=== PATIENT | female | born 1975 | race Caucasian/White ===

== ENCOUNTER 2016-08-08 08:46 | Inpatient (IN) | payer MEDICAID ==
[~2016-08-08] VITALS: Ht 160 cm; Wt 77.0 kg
[2016-08-08] VITALS (19 sets, daily range): BP systolic 141–181; BP diastolic 83–121; PULSE 59–82; RESP 16–18; TEMP 97.5–98.9; O2SAT 95–100
[~2016-08-08 08:46] MED LIST: ASPI81TA82 PO; IBUP-232 PO; METO50TA PO
[2016-08-08] MEDS ORDERED: SODIUM CHLORIDE 0.9% FLUSH 10 ML FLUSH IVF PRN (09:00)
[2016-08-08] MEDS ORDERED: ASPIRIN 325 MG TAB PO ONE (09:00)
[2016-08-08] MEDS ORDERED: LORazepam 2 MG/ML VIAL IM ONE (09:00)
--- NOTE | 2016-08-08 09:05 | PD ---
HPI Chief Complaint: Chest Pain Time Seen by Provider: 08:58 Travel History International Travel<30 days: No Contact w/Intl Traveler<30days: No History of Present Illness HPI Patient presents with complaints of chest pain for approximately one hour prior to arrival. Constant in nature. Admits to history of anxiety with similar symptoms. Reports a history of [place] approximately 3 years ago that feels similar to this as well. Positive tobacco history. Positive family history. Denies diabetes. History of hypertension, noncompliant with medication. Denies any diaphoresis or shortness of breath. Denies any radiation to her left arm. Denies . Reports mild nausea which she also gets with anxiety. States she did take 2 baby aspirin this morning. PFSH Past Medical History Hx Anticoagulant Therapy: No Arthritis: Yes Asthma: Yes Blood Disorders: No Bipolar Disorder: Yes Anxiety: Yes Depression: No Heart Rhythm Problems: No Cancer: No Cardiovascular Problems: Yes Chemotherapy: No Chest Pain: Yes Congestive Heart Failure: No COPD: No Cerebrovascular Accident: No Diabetes: No Diminished Hearing: No Endocrine: No Genitourinary: No Hypertension: Yes Immune Disorder: No Musculoskeletal: No Neurologic: No Psychiatric: Yes Reproductive: Yes Respiratory: No Immunizations Current: Yes Myocardial Infarction: Yes Radiation Therapy: No Sleep Apnea: Yes Thyroid Disease: No : 4 Para: 2 Miscarriage: 2 Dilation and Curettage (D&C): Yes (1997) Tubal Ligation: Yes Past Surgical History Cardiac Surgery: Yes (CATH) Section: Yes Gynecologic Surgery: Yes (D&C) Hysterectomy: No Other Surgery: Yes (d&c, ) Social History Alcohol Use: No Tobacco Use: Yes (/2 PPD) Substance Use: Yes (marijuana) Allergies-Medications (Allergen,Severity, Reaction): Coded Allergies: Triaminic (Verified Allergy, Unknown, HIVES, 08/08/16) Reported Meds & Prescriptions Reported Meds & Active Scripts Active Reported Aspirin 81 Mg Chew 81 Mg CHEW DAILY Review of Systems General / Constitutional: No: Fever Eyes: No: Visual changes HENT: No: Headaches Cardiovascular: Positive: Chest Pain or Discomfort Respiratory: No: Shortness of Breath Gastrointestinal: No: Abdominal Pain Genitourinary: No: Dysuria Musculoskeletal: No: Pain Skin: No Rash Neurologic: No: Weakness Psychiatric: No: Depression Endocrine: No: Polydipsia Hematologic/Lymphatic: No: Easy Bruising Physical Exam Narrative GENERAL: Well-nourished, well-developed patient. SKIN: Focused skin assessment warm/dry. HEAD: Normocephalic. EYES: No scleral icterus. No injection or drainage. NECK: Supple, trachea midline. No JVD or lymphadenopathy. CARDIOVASCULAR: Regular rate and rhythm without murmurs, gallops, or rubs. RESPIRATORY: Breath sounds equal bilaterally. No accessory muscle use. GASTROINTESTINAL: Abdomen soft, non-tender, nondistended. MUSCULOSKELETAL: No cyanosis, or edema. BACK: Nontender without obvious deformity. No CVA tenderness. Data Data Last Documented VS Vital Signs Date Time Temp Pulse Resp B/P Pulse Ox O2 Delivery O2 Flow Rate FiO2 08/08/16 08:50 16 95 Room Air 08/08/16 08:50 158/108 181/109 08/08/16 08:46 97.5 74 Orders Electrocardiogram (08/08/16 08:58) Ckmb (Isoenzyme) Profile (08/08/16 08:58) Complete Blood Count With Diff (08/08/16 08:58) Comprehensive Metabolic Panel (08/08/16 08:58) Magnesium (Mg) (08/08/16 08:58) Prothrombin Time / Inr (Pt) (08/08/16 08:58) Act Partial Throm Time (Ptt) (08/08/16 08:58) Troponin I (08/08/16 08:58) Chest, Single Ap (08/08/16 08:58) Ecg Monitoring (08/08/16 08:58) Bilateral Bp Monitoring (08/08/16 08:58) Iv Access Insert/Monitor (08/08/16 08:58) Oximetry (08/08/16 08:58) Oxygen Administration (08/08/16 08:58) Aspirin (Aspirin) (08/08/16 09:00) Sodium Chloride 0.9% Flush (Ns Flush) (08/08/16 09:00) Lorazepam Inj (Ativan Inj) (08/08/16 09:00) Lorazepam Inj (Ativan Inj) (08/08/16 09:15) Ondansetron Inj (Zofran Inj) (08/08/16 09:30) Clonidine (Catapres) (08/08/16 10:15) Heparin Infusion MARY.Q1H (08/08/16 10:48) Heparin Inj (Heparin Inj) (08/08/16 17:00) Heparin Inj (Heparin Inj) (08/08/16 17:00) Heparin-D5w Inj (Heparin-D5w Inj) (08/08/16 11:00) Act Partial Throm Time (Ptt) (08/08/16 10:48) Cbc No Diff, Includes Plts (08/08/16 10:48) Cbc No Diff, Includes Plts (08/11/16 06:00) Act Partial Throm Time (Ptt) (08/08/16 17:48) Occult Blood (Hemoccult) Stool (08/08/16 10:48) Drug Screen, Random Urine (08/08/16 10:48) Nitroglycerin 2% Oint (Nitroglycerin 2% (08/08/16 11:00) Atenolol (Tenormin) (08/08/16 21:00) Admit Order (Ed Use Only) (08/08/16 ) Health Administrator / Telemetry MARY.Q8H (08/08/16 10:53) Vital Signs (Adult) Q4H (08/08/16 10:53) Diet Heart Healthy (08/08/16 Lunch) Activity Oob With Assistance (08/08/16 10:53) Creatine Kinase (Cpk) (08/08/16 10:53) Creatine Kinase (Cpk) (08/08/16 16:53) Troponin I (08/08/16 10:53) Troponin I (08/08/16 16:53) ^ Saline Lock (08/08/16 10:53) Resp Oxygen Inderjit C Titrat 1-4 L (08/08/16 ) Notify Dr: Other (08/08/16 10:53) Ondansetron Inj (Zofran Inj) (08/08/16 11:00) Acetaminophen (Tylenol) (08/08/16 11:00) Sodium Chloride 0.9% Flush (Ns Flush) (08/08/16 21:00) Labs Laboratory Tests Test 08/08/16 09:08 White Blood Count 7.9 TH/MM3 Red Blood Count 5.25 MIL/MM3 Hemoglobin 15.9 GM/DL Hematocrit 47.8 % Mean Corpuscular Volume 91.2 FL Mean Corpuscular Hemoglobin 30.2 PG Mean Corpuscular Hemoglobin 33.1 % Concent Red Cell Distribution Width 12.8 % Platelet Count 206 TH/MM3 Mean Platelet Volume 8.9 FL Neutrophils (%) (Auto) 72.6 % Lymphocytes (%) (Auto) 18.0 % Monocytes (%) (Auto) 6.6 % Eosinophils (%) (Auto) 1.1 % Basophils (%) (Auto) 1.7 % Neutrophils # (Auto) 5.8 TH/MM3 Lymphocytes # (Auto) 1.4 TH/MM3 Monocytes # (Auto) 0.5 TH/MM3 Eosinophils # (Auto) 0.1 TH/MM3 Basophils # (Auto) 0.1 TH/MM3 CBC Comment AUTO DIFF Differential Comment AUTO DIFF CONFIRMED Prothrombin Time 10.3 SEC Prothromb Time International 0.9 RATIO Ratio Activated Partial 29.3 SEC Thromboplast Time Sodium Level 141 MEQ/L Potassium Level 4.0 MEQ/L Chloride Level 108 MEQ/L Carbon Dioxide Level 25.9 MEQ/L Anion Gap 7 MEQ/L Blood Urea Nitrogen 9 MG/DL Creatinine 0.85 MG/DL Estimat Glomerular Filtration 74 ML/MIN Rate Random Glucose 111 MG/DL Calcium Level 8.8 MG/DL Magnesium Level 2.3 MG/DL Total Bilirubin 0.4 MG/DL Aspartate Amino Transf 15 U/L (AST/SGOT) Alanine Aminotransferase 15 U/L (ALT/SGPT) Alkaline Phosphatase 66 U/L Total Creatine Kinase 80 U/L Troponin I 1.39 NG/ML Total Protein 7.3 GM/DL Albumin 3.6 GM/DL MDM Medical Decision Making Medical Screen Exam Complete: Yes Emergency Medical Condition: Yes Differential Diagnosis ACS, anxiety, gastroenteritis, urgent hypertension Narrative Course Assessment and plan discussed with patient at bedside. EKG reveals sinus rhythm rate of 75. ST segment elevations or depressions. Hemoglobin is mildly elevated likely secondary to some tobacco history. Troponin is mildly elevated at 1.39. Last 72 hours Impressions Chest X-Ray 08/08/16 0858 Signed Impressions: Service Date/Time: Wednesday, August 08, 2016 09:09 - CONCLUSION: No acute disease. Will Vogel MD FACR Patient is resting comfortably chest pain-free Physician Communication Physician Communication Spoke to Dr. Bhatti who is in agreement will admit, requested UDS, heparin drip, Nitropaste and beta brandi Diagnosis Primary Impression: NSTEMI (non-ST elevated myocardial infarction) Esteban Romo MD Aug 08, 2016 09:05
[2016-08-08] MEDS ORDERED: LORazepam 2 MG/ML VIAL IV PUSH ONE (09:15)
[2016-08-08 09:22] LABS: AUTOMATED NEUTROPHIL # 5.8 TH/MM3 (1.8-7.7); BASOPHIL # 0.1 TH/MM3 (0-0.2); BASOPHIL % 1.7 % (0.0-2.0); EOSINOPHIL # 0.1 TH/MM3 (0-0.4); EOSINOPHIL % 1.1 % (0.0-4.0); HEMATOCRIT 47.8 % (35.0-46.0); LYMPHOCYTE # 1.4 TH/MM3 (1.0-4.8); MEAN CELL VOLUME 91.2 FL (80.0-100.0); MEAN CORPUSCULAR HEMOGLOBIN 30.2 PG (27.0-34.0); MEAN CORPUSCULAR HGB CONC 33.1 % (32.0-36.0); MONO % 6.6 % (0.0-8.0); NEUT % 72.6 % (16.0-70.0); PLATELET COUNT 206 TH/MM3 (150-450); RED BLOOD COUNT 5.25 MIL/MM3 (4.00-5.30); RED CELL DISTRIBUTION WIDTH 12.8 % (11.6-17.2); WHITE BLOOD COUNT 7.9 TH/MM3 (4.0-11.0)
--- NOTE | 2016-08-08 09:28 | RADHPO ---
EXAM DATE/TIME: 08/08/2016 09:09 [facility] COMPARISON: CHEST SINGLE AP, August 28, 2015, 19:29. INDICATIONS : Chest pain today MEDICAL HISTORY : Myocardial infarction. SURGICAL HISTORY : None. ENCOUNTER: Initial ACUITY: 1 day PAIN SCORE: 9/10 LOCATION: Bilateral chest FINDINGS: A single view of the chest demonstrates the lungs to be symmetrically aerated without evidence of mas s, infiltrate or effusion. The cardiomediastinal contours are unremarkable. Osseous structures are intact. CONCLUSION: No acute disease. Will Vogel MD FACR on August 08, 2016 at 9:26 Board Certified Radiologist. This report was verified electronically.
[2016-08-08] MEDS ORDERED: ONDANSETRON HCL 4 MG/2 ML VIAL IV PUSH ONE (09:30)
[2016-08-08 09:33] LABS: APTT (PATIENT) 29.3 SEC (24.3-30.1); INTERNATIONAL NORMALIZED RATIO 0.9 RATIO; PROTHROMBIN TIME - PATIENT 10.3 SEC (9.8-11.6)
[2016-08-08 09:34] LABS: HEMO FLAGS AUTO DIFF
[2016-08-08] MEDS ORDERED: ASPI81CH CHEW (09:37)
[2016-08-08 09:55] LABS: SCAN/DIFF AUTO DIFF CONFIRMED
[2016-08-08 10:12] LABS: ALT (GPT) 15 U/L (10-53)
[2016-08-08 10:13] LABS: BICARBONATE 25.9 MEQ/L (21.0-32.0); BLOOD UREA NITROGEN 9 MG/DL (7-18); MAGNESIUM 2.3 MG/DL (1.5-2.5)
[2016-08-08] MEDS ORDERED: cloNIDine HCL 0.1 MG TAB PO ONE (10:15)
[2016-08-08 10:16] LABS: ANION GAP 7 MEQ/L (5-15); CHLORIDE 108 MEQ/L (98-107); SODIUM (NA) 141 MEQ/L (136-145)
[2016-08-08 10:20] LABS: AST (GOT) 15 U/L (15-37); GLOMERULAR FILTRATION RATE 74 ML/MIN (>89)
[2016-08-08 10:22] LABS: TOTAL BILIRUBIN ADULT 0.4 MG/DL (0.2-1.0)
[2016-08-08 10:23] LABS: ALKALINE PHOSPHATASE 66 U/L (45-117)
[2016-08-08 10:26] LABS: CREATINE KINASE 80 U/L (26-192)
[2016-08-08] MEDS ORDERED: NITROGLYCERIN 2% OINT 1 GM PACKET TOPICAL ONE (11:00)
[2016-08-08] MEDS ORDERED: HEPARIN-D5W INJ 250 ML IV SCH (11:00)
[2016-08-08] MEDS ORDERED: ONDANSETRON HCL 4 MG/2 ML VIAL IV PRN (11:00)
[2016-08-08 12:36] LABS: AMPHETAMINE, URINE NEG (NEG)
[2016-08-08 12:45] LABS: BARBITURATES, URINE NEG (NEG)
[2016-08-08 12:49] LABS: COCAINE, URINE NEG (NEG)
[2016-08-08] MEDS: ACETAMINOPHEN 325 MG TAB PO PRN ×2 (15:40→21:48)
[2016-08-08] MEDS ORDERED: ATORVASTATIN 40 MG TAB PO ONE (16:00)
--- NOTE | 2016-08-08 16:47 | HHI.HP ---
HPI Service [facility] ([place], [place])ists Primary Care Physician No Primary Care Physician Admission Diagnosis NSTEMI Diagnoses: Chief Complaint: chest pain Travel History International Travel<30 Days: No Contact w/Intl Traveler <30 Da: No Traveled to Known Affected Are: No History of Present Illness Written by Renate Uribe, acting as scribe for Dr. Rangel on 08/08/16 at 17: 40. 40-year-old female with history of hypertension, asthma, tobacco use, anxiety, depression, bipolar disorder, presents with acute onset of chest pain this morning 08/08/16. The patient reports she woke up around 7:30am with severe palpitations, felt her heart racing, then developed chest pain located substernally with radiation to the mid-back, described as severe pressure, associated with nausea but no shortness of breath or dizziness. She took 2 baby aspirin and came to the ER. Symptoms lasted about an hour, resolved after her arrival to the ER. Denies noticing any aggravating or alleviating factors. Denies any recent travel or leg swelling. The patient has a history of NSTEMI in 2013 however cardiac catheterization done by Dr. Vail showed normal coronary arteries at the time, no obvious culprit for the NSTEMI. She continues to smoke tobacco, however is motivated to quit. Both of her parents have a history of heart disease, mother had stent at age 65 and father with CABG in his 50s. The patient admits to noncompliance with blood pressure medications, however does take a baby aspirin daily. The patient reports history of severe anxiety and has palpitations and chest pains almost every day but nothing like her symptoms today. She reports recently increased anxiety and stress level since she has returned to work. She states she only works 5 days a week, 6 hour shifts, however it has been hard leaving her children at home during summer break. The patient is interested in talking to a psychiatrist about possibly starting medication for her severe anxiety. Review of Systems Except as stated in HPI: all other systems reviewed are Neg Past Family Social History Past Medical History asthma arthritis bipolar disorder anxiety depression hypertension Past Surgical History D&C Cardiac catheterization Reported Medications Aspirin 81 Mg Chew 81 Mg CHEW DAILY Allergies: Coded Allergies: Triaminic (Verified Allergy, Unknown, HIVES, 08/08/16) Active Ordered Medications Current Medications Medications (Trade) Dose Ordered Sig/Vannessa Route Start Time Stop Time Status Last Admin (NS Flush) 2 ml UNSCH PRN IVF 08/08/16 09:00 (Heparin Inj) 5,000 units UNSCH PRN IV 08/08/16 17:00 Heparin Sodium (Porcine) 2500 units 2,500 units UNSCH PRN IV 08/08/16 17:00 (Heparin-D5W Inj) 250 ml @ 0 mls/hr TITRATE IV 08/08/16 11:00 08/08/16 12:34 (Tenormin) 25 mg Q12HR PO 08/08/16 21:00 (Zofran Inj) 4 mg Q6H PRN IV 08/08/16 11:00 08/08/16 15:40 (Tylenol) 650 mg Q4H PRN PO 08/08/16 11:00 08/08/16 15:40 (NS Flush) 2 ml BID IV FLUSH 08/08/16 21:00 (Lipitor) 40 mg DAILY PO 08/09/16 09:00 (Ecotrin Ec) 162 mg DAILY PO 08/09/16 09:00 Family History Mother with heart disease, cardiac stent placed age 65 Father with hypertension, heart disease, CABG in his 50s Social History Smokes tobacco, 1/2 PPD Denies alcohol use Smokes marijuana Denies any other illicit drug use Physical Exam Vital Signs Vital Signs Date Time Temp Pulse Resp B/P Pulse Ox O2 Delivery O2 Flow Rate FiO2 08/08/16 16:30 61 08/08/16 15:45 59 08/08/16 15:42 98.9 78 18 143/97 98 08/08/16 15:00 78 16 141/83 98 08/08/16 12:25 82 16 150/99 100 Room Air 08/08/16 11:40 66 16 154/98 99 Room Air 08/08/16 10:40 82 16 162/112 100 Room Air 08/08/16 10:00 95 21 08/08/16 10:00 78 16 168/106 99 Room Air 08/08/16 09:40 76 16 154/121 99 Room Air 08/08/16 08:50 16 95 Room Air 08/08/16 08:50 95 Room Air 08/08/16 08:50 158/108 181/109 08/08/16 08:50 Room Air 08/08/16 08:46 97.5 74 16 158/108 95 Physical Exam GENERAL: Well-nourished, well-developed middle aged female patient in [facility]. SKIN: Warm and dry. No rash. HEAD: Normocephalic. Atraumatic. EYES: Pupils equal and round. No scleral icterus. No injection or drainage. ENT: No nasal bleeding or discharge. Mucous membranes pink and moist. NECK: Supple. Trachea midline. Thyroid exam unremarkable. CARDIOVASCULAR: Regular rate and rhythm. S1, S2 noted. No murmur appreciated. RESPIRATORY: No accessory muscle use. Clear to auscultation. Breath sounds equal bilaterally. GASTROINTESTINAL: Abdomen soft, non-tender, nondistended. Normoactive bowel sounds x4. MUSCULOSKELETAL: No obvious deformities. Extremities without clubbing, cyanosis , or edema. NEUROLOGICAL: Awake and alert. No obvious cranial nerve deficits. Motor grossly within normal limits. Normal speech. PSYCHIATRIC: Tearful, anxious; insight and judgment normal. Laboratory Laboratory Tests Test 08/08/16 08/08/16 08/08/16 09:08 12:22 14:52 White Blood Count 7.9 Red Blood Count 5.25 Hemoglobin 15.9 Hematocrit 47.8 Mean Corpuscular Volume 91.2 Mean Corpuscular Hemoglobin 30.2 Mean Corpuscular Hemoglobin 33.1 Concent Red Cell Distribution Width 12.8 Platelet Count 206 Mean Platelet Volume 8.9 Neutrophils (%) (Auto) 72.6 Lymphocytes (%) (Auto) 18.0 Monocytes (%) (Auto) 6.6 Eosinophils (%) (Auto) 1.1 Basophils (%) (Auto) 1.7 Neutrophils # (Auto) 5.8 Lymphocytes # (Auto) 1.4 Monocytes # (Auto) 0.5 Eosinophils # (Auto) 0.1 Basophils # (Auto) 0.1 CBC Comment AUTO DIFF Differential Comment AUTO DIFF CONFIRMED Prothrombin Time 10.3 Prothromb Time International 0.9 Ratio Activated Partial 29.3 Thromboplast Time Sodium Level 141 Potassium Level 4.0 Chloride Level 108 Carbon Dioxide Level 25.9 Anion Gap 7 Blood Urea Nitrogen 9 Creatinine 0.85 Estimat Glomerular Filtration 74 Rate Random Glucose 111 Calcium Level 8.8 Magnesium Level 2.3 Total Bilirubin 0.4 Aspartate Amino Transf 15 (AST/SGOT) Alanine Aminotransferase 15 (ALT/SGPT) Alkaline Phosphatase 66 Total Creatine Kinase 80 149 Troponin I 1.39 4.53 Total Protein 7.3 Albumin 3.6 Urine Opiates Screen NEG Urine Barbiturates Screen NEG Urine Amphetamines Screen NEG Urine Benzodiazepines Screen NEG Urine Cocaine Screen NEG Urine Cannabinoids Screen POS Result Diagram: 08/08/1690708/08/16 09 Imaging Last Impressions Chest X-Ray 08/08/16 0858 Signed Impressions: Service Date/Time: Wednesday, August 08, 2016 09:09 - CONCLUSION: No acute disease. Will Vogel MD FACR Assessment and Plan Problem List: (1) NSTEMI (non-ST elevated myocardial infarction) ICD Code: I21.4 Status: Acute (2) Chest pain ICD Code: R07.9 Status: Acute (3) Anxiety ICD Code: F41.9 Status: Acute Assessment and Plan 40-year-old female with history of hypertension, asthma, tobacco use, anxiety, bipolar disorder, presents with acute onset of chest pain today 08/08. NSTEMI: Troponins elevated at 1.39 --> 4.53. EKG reviewed, shows NSR, no acute ST changes to suggest ischemia. Pt has hx of NSTEMI 2013 with cardiac catheterization by Dr. Vail showed normal coronary arteries. -Continue trend serial cardiac enzymes and EKGs -Continue IV heparin drip -Continue aspirin, statin, BB, nitro paste -IV morphine prn chest pain -Monitor on telemetry -Check lipid panel and HgbA1c -Cardiology consulted, ER MD spoke with Dr. Bhatti -NPO after midnight Anxiety: acute on chronic. S/p IV ativan in the ED. Patient still very tearful/ anxious on exam. -continue Xanax 0.5mg po q8h prn anxiety -consult psychiatry, consider starting on SSRI Elevated Hemoglobin: patient has had elevated hemoglobin on multiple visits. Consider polycythemia. -check EPO and JAK2 -consider hematology consult Hypertension: chronic, not on meds -started on metoprolol -monitor BP, adjust antihypertensives as needed Tobacco Use: chronic, patient motivated to quit -counseled on cessation -avoid nicotine patch for now due to vasoconstriction DVT Prophylaxis: on Heparin drip Discussed Condition With Patient, patient's mom and daughter at bedside, CIC RN, ER MD Physician Certification 2 Midnight Certification Type: Admission for Inpatient Services Order for Inpatient Services The services are ordered in accordance with Medicare regulations or non- Medicare payer requirements, as applicable. In the case of services not specified as inpatient-only, they are appropriately provided as inpatient services in accordance with the 2-midnight benchmark. Estimated LOS (days): 2 days is the estimated time the patient will need to remain in the hospital, assuming treatment plan goals are met and no additional complications. Post-Hospital Plan: Home Medical Decision Making MDM Remarks This note was transcribed by eloise Uribe. I, Dr. Jerzy Quesada personally performed the history, physical exam, and medical decision making; and confirmed the accuracy of the information in the transcribed note. Authenticated by Dr. Jerzy Quesada on 08/08/16 at 18:32. Renate Uribe PA-C Aug 08, 2016 16:47 Jerzy Richard MD Aug 08, 2016 18:32
[2016-08-08] MEDS ORDERED: HEPARIN SODIUM - IV 10,000 UNITS/10 ML VIAL IV PRN ×2 (17:00)
[2016-08-08] MEDS ORDERED: MORPHINE SULFATE 4 MG/ML INJ IV PUSH PRN (17:30)
[2016-08-08] MEDS: ALPRAZolam 0.5 MG TAB PO PRN ×2 (17:50→22:55)
--- NOTE | 2016-08-08 18:42 | MB ---
cc: SLICK BHATTI DATE OF CONSULTATION 08/08/16 I have reviewed prior and present records and spoken to the patient. HISTORY Three years ago the patient had prolonged chest pain with a non-ST elevation DC. Catheterization showed normal LV function and coronary arteries. The patient gets occasional atypical chest pressure under stress. She notes no exertional discomfort, congestive heart failure symptoms or syncope. She has noted over the last 3 years that a few times per day she will get the sudden onset of a rapid heartbeat lasting seconds which resolved suddenly. Today at 7:30 this morning she had the onset of a rapid, regular heart beat which was fast. This lasted an hour and was associated with substernal tightness but no other symptoms. The palpitations came on suddenly and ended suddenly. Her discomfort resolved over 20 minutes after the palpitations. She is pain free now. PAST MEDICAL HISTORY Tobacco abuse, asthma, cardiac as above. D&C, tubal ligation, section, UTIs, hypertension. MEDICATIONS Medications prior to examination just aspirin. SOCIAL HISTORY She is and smokes one pack per day and rarely drinks. FAMILY HISTORY Positive for mother with an DC at 65. REVIEW OF SYSTEMS Review of systems remarkable for hip pain and the above. PHYSICAL EXAMINATION GENERAL: On exam she is alert and oriented x3. HEENT: There is no xanthelasma and oral pharyngeal mucosa normal. CHEST: Without deformities and clear. NECK: JVD normal. CARDIOVASCULAR: S1-S2. No murmurs, gallops. ABDOMEN: Benign. EXTREMITIES: Show no cyanosis, clubbing or edema. Pulses 2/2 throughout without bruits. She is not ambulated ALLERGIES TRIAMINIC. CARDIOLOGY STUDIES EKG shows sinus rhythm with no acute changes. IMAGING STUDIES Chest x-ray shows no acute disease. LABORATORY FINDINGS Potassium 4.0, creatinine 0.85, glucose 111. CPK normal with troponins of 1.39 and 4.53. Tox screen only positive for cannabis. PT/PTT normal. CBC essentially normal. PROBLEM 1. Non-ST elevation DC-this was preceded by the onset of a rapid arrhythmia and most likely is a type 2 injury, although, she does have risk factors. 2. Arrhythmia-this sounds like supraventricular tachycardia. 3. Tobacco abuse. 4. Hypertension. RECOMMENDATIONS 1. She is presently on heparin drip. 2. Beta-blockers. 3. Aspirin and statins, obtaining lipid panel. 4. Will likely need catheterization just to rule out significant obstructive disease. If this is negative she may need electrophysiologic studies. All questions have been answered. Slick Bhatti MD ASG/EO /4:03 PM /6:36 PM
[2016-08-08] MEDS ORDERED: ATENOLOL 25 MG TAB PO SCH (21:00)
[2016-08-08 21:27] LABS: APTT (PATIENT) 32.9 SEC (24.3-30.1)
[2016-08-08] MEDS: METOPROLOL TARTRATE 25 MG TAB PO SCH (21:39)
[2016-08-08] MEDS: SODIUM CHLORIDE 0.9% FLUSH 10 ML FLUSH IV FLUSH SCH (21:39)
[2016-08-08 21:42] LABS: CREATINE KINASE 120 U/L (26-192)
[2016-08-09] VITALS (23 sets, daily range): BP systolic 124–171; BP diastolic 78–111; PULSE 53–79; RESP 16–20; TEMP 97.7–98.1; O2SAT 97–99
[2016-08-09 05:01] LABS: APTT (PATIENT) 52.2 SEC (24.3-30.1)
[2016-08-09 05:18] LABS: HDL CHOLESTEROL 47.8 MG/DL (40.0-60.0)
[2016-08-09] MEDS: ATORVASTATIN 40 MG TAB PO SCH (08:42)
[2016-08-09] MEDS: ALPRAZolam 0.5 MG TAB PO PRN ×2 (08:43→18:11)
[2016-08-09] MEDS: METOPROLOL TARTRATE 25 MG TAB PO SCH ×2 (08:43→20:14)
[2016-08-09] MEDS: ASPIRIN EC 81 MG TABEC PO SCH (08:43)
[2016-08-09] MEDS: SODIUM CHLORIDE 0.9% FLUSH 10 ML FLUSH IV FLUSH SCH ×2 (08:43→20:14)
--- NOTE | 2016-08-09 09:30 | PD.CARD.PN ---
Subjective Subjective Remarks Patient denies any chest pain, bleeding or GI symptoms. She is sick of being in the hospital. Telemetry reveals sinus rhythm/sinus bradycardia. On heparin drip. Objective Medications Reviewed Vital Signs / I&O Vital Signs Date Time Temp Pulse Resp B/P Pulse Ox O2 Delivery O2 Flow Rate FiO2 08/09/16 08:06 79 08/09/16 07:00 61 08/09/16 07:00 97.9 64 18 150/98 98 08/09/16 05:00 60 08/09/16 04:41 98.1 58 16 143/93 99 08/09/16 04:00 56 08/09/16 03:00 61 08/09/16 02:00 60 08/09/16 01:00 59 08/09/16 00:11 97.8 69 16 124/78 98 08/09/16 00:00 58 08/08/16 23:00 61 08/08/16 22:00 72 08/08/16 21:00 74 08/08/16 20:25 97.8 63 16 142/86 99 08/08/16 20:00 64 08/08/16 19:00 73 08/08/16 18:00 72 08/08/16 17:00 75 08/08/16 16:30 61 08/08/16 15:45 59 08/08/16 15:42 98.9 78 18 143/97 98 08/08/16 15:00 78 16 141/83 98 08/08/16 12:25 82 16 150/99 100 Room Air 08/08/16 11:40 66 16 154/98 99 Room Air 08/08/16 10:40 82 16 162/112 100 Room Air 08/08/16 10:00 95 21 08/08/16 10:00 78 16 168/106 99 Room Air 08/08/16 09:40 76 16 154/121 99 Room Air I/O 08/08/16 08/08/16 08/08/16 08/09/16 08/09/16 08/09/16 07:00 15:00 23:00 07:00 15:00 23:00 Intake Total 520 ml 350 ml Output Total 350 ml Balance 520 ml 0 ml Intake Oral 480 ml 240 ml IV Total 40 ml 110 ml Output Urine Total 350 ml Stool Total 0 ml # Voids 3 # Bowel Movements 1 Physical Exam GENERAL: Well-nourished, well-developed patient in no apparent distress. SKIN: Warm and dry. NECK: JVD normal - less than or equal to 5 cm H20. CARDIOVASCULAR: Regular rate and rhythm without murmurs, gallops, or rubs. RESPIRATORY: Normal breath sounds - equal bilaterally. No accessory muscle use. No wheezes, rales or rubs. PERIPHERY: No cyanosis, or edema. Laboratory Laboratory Tests Test 08/08/16 08/08/16 08/08/16 08/09/16 12:22 14:52 20:47 04:10 Urine Opiates Screen NEG Urine Barbiturates Screen NEG Urine Amphetamines Screen NEG Urine Benzodiazepines Screen NEG Urine Cocaine Screen NEG Urine Cannabinoids Screen POS Total Creatine Kinase 149 U/L 120 U/L Troponin I 4.53 NG/ML 2.86 NG/ML Activated Partial 32.9 SEC 52.2 SEC Thromboplast Time Thyroid Stimulating Hormone 2.060 uIU/ML 3rd Gen Triglycerides Level 119 MG/DL Cholesterol Level 169 MG/DL LDL Cholesterol 97 MG/DL HDL Cholesterol 47.8 MG/DL Cholesterol/HDL Ratio 3.53 RATIO Imaging Last 48 hours Impressions Chest X-Ray 08/08/16 0858 Signed Impressions: Service Date/Time: Monday, August 08, 2016 09:09 - CONCLUSION: No acute disease. Will Vogel MD FACR Assessment and Plan Assessment and Plan Problems: Non-ST elevation NM Hypertension Tobacco abuse Tachycardia arrhythmia Major noncompliance Recommendations: Continue present medical regimen Dr. Martinez is seen for catheterization with possible intervention. I will consult from electrophysiology to see if he feels electrophysiology studies indicated. Unfortunately, our group is not providers for her Medicaid HMO and she will need eventual follow-up with a crown assembly machine operator within her network. I will sign off and leave further management to Dr. Martinez and electrophysiology. Slick Bhatti MD Aug 09, 2016 09:30
--- NOTE | 2016-08-09 09:50 | EKG ---
Date Performed: 08/08/2016 Time Performed: 08:49:12 PTAGE: 40 years EKG: Sinus rhythm Possible left atrial abnormality Poor R wave progression - probable normal variant Borderline ECG PREVIOUS TRACING : 08/28/2015 22.14 DOCTOR: Florentin Valentino Interpretating Date/Time 08/09/2016 09:40:17
[2016-08-09] MEDS ORDERED: IOHEXOL 350 MG/ML 50 ML BTL (for Cath Lab) OTHER ONE (13:27)
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
[2016-08-09 15:26] LABS: APTT (PATIENT) 28.1 SEC (24.3-30.1)
[2016-08-09] MEDS: LABETALOL HCL 100 MG/20 ML VIAL IV ONE ×2 (15:45→16:22)
[2016-08-09] MEDS ORDERED: HEPARIN-NS/PF INJ 500 ML ONE (17:07)
[2016-08-09] MEDS ORDERED: HEPARIN SODIUM - IV 10,000 UNITS/10 ML VIAL ONE (17:08)
[2016-08-09] MEDS ORDERED: MIDAZOLAM HCL 2 MG/2 ML VIAL ONE ×2 (17:08→17:15)
[2016-08-09] MEDS ORDERED: VERAPAMIL HCL 5 MG/2 ML VIAL ONE (17:08)
[2016-08-09] MEDS ORDERED: NITROGLYCERIN INJ 5 ML ONE (17:10)
--- NOTE | 2016-08-09 17:34 | HHI.PR ---
Subjective Remarks Patient denies cp/sob. more calm Stable vital signs Objective Vitals Vital Signs Date Time Temp Pulse Resp B/P Pulse Ox O2 Delivery O2 Flow Rate FiO2 08/09/16 16:57 65 08/09/16 15:43 97.8 60 18 171/111 98 08/09/16 15:42 56 08/09/16 14:29 61 08/09/16 13:00 57 08/09/16 12:29 60 08/09/16 11:38 97.7 65 18 146/90 98 08/09/16 11:38 55 08/09/16 10:00 58 08/09/16 09:00 59 08/09/16 08:06 79 08/09/16 07:00 61 08/09/16 07:00 97.9 64 18 150/98 98 08/09/16 05:00 60 08/09/16 04:41 98.1 58 16 143/93 99 08/09/16 04:00 56 08/09/16 03:00 61 08/09/16 02:00 60 08/09/16 01:00 59 08/09/16 00:11 97.8 69 16 124/78 98 08/09/16 00:00 58 08/08/16 23:00 61 08/08/16 22:00 72 08/08/16 21:00 74 08/08/16 20:25 97.8 63 16 142/86 99 08/08/16 20:00 64 08/08/16 19:00 73 08/08/16 18:00 72 I/O 08/08/16 08/08/16 08/08/16 08/09/16 08/09/16 08/09/16 07:00 15:00 23:00 07:00 15:00 23:00 Intake Total 520 ml 350 ml 540 ml Output Total 350 ml Balance 520 ml 0 ml 540 ml Intake Oral 480 ml 240 ml 400 ml IV Total 40 ml 110 ml 140 ml Output Urine Total 350 ml Stool Total 0 ml # Voids 3 4 # Bowel Movements 1 Result Diagram: 08/08/1608 08/08/16 0908 Imaging Last Impressions Chest X-Ray 08/08/16 0858 Signed Impressions: Service Date/Time: Monday, August 08, 2016 09:09 - CONCLUSION: No acute disease. Will Vogel MD FACR Objective Remarks GENERAL: Well-nourished, well-developed middle aged female patient in [facility]. SKIN: Warm and dry. No rash. HEAD: Normocephalic. Atraumatic. EYES: Pupils equal and round. No scleral icterus. No injection or drainage. ENT: No nasal bleeding or discharge. Mucous membranes pink and moist. NECK: Supple. Trachea midline. Thyroid exam unremarkable. CARDIOVASCULAR: Regular rate and rhythm. S1, S2 noted. No murmur appreciated. RESPIRATORY: No accessory muscle use. Clear to auscultation. Breath sounds equal bilaterally. GASTROINTESTINAL: Abdomen soft, non-tender, nondistended. Normoactive bowel sounds x4. MUSCULOSKELETAL: No obvious deformities. Extremities without clubbing, cyanosis , or edema. NEUROLOGICAL: Awake and alert. No obvious cranial nerve deficits. Motor grossly within normal limits. Normal speech. PSYCHIATRIC: Tearful, anxious; insight and judgment normal. Medications and IVs Current Medications Medications (Trade) Dose Ordered Sig/Vannessa Route Start Time Stop Time Status Last Admin (NS Flush) 2 ml UNSCH PRN IVF 08/08/16 09:00 (Heparin Inj) 5,000 units UNSCH PRN IV 08/08/16 17:00 Heparin Sodium (Porcine) 2500 units 2,500 units UNSCH PRN IV 08/08/16 17:00 08/08/16 21:39 (Heparin-D5W Inj) 250 ml @ 0 mls/hr TITRATE IV 08/08/16 11:00 08/08/16 12:34 (Zofran Inj) 4 mg Q6H PRN IV 08/08/16 11:00 08/08/16 15:40 (Tylenol) 650 mg Q4H PRN PO 08/08/16 11:00 08/08/16 21:48 (NS Flush) 2 ml BID IV FLUSH 08/08/16 21:00 08/09/16 08:43 (Lipitor) 40 mg DAILY PO 08/09/16 09:00 08/09/16 08:42 (Ecotrin Ec) 162 mg DAILY PO 08/09/16 09:00 08/09/16 08:43 (Lopressor) 25 mg Q12HR PO 08/08/16 21:00 08/09/16 08:43 (Morphine Inj) 2 mg Q3H PRN IV PUSH 08/08/16 17:30 (Xanax) 0.5 mg Q8H PRN PO 08/08/16 17:30 08/09/16 08:43 Urinary Catheter: No Vascular Central Line Catheter: No A/P Problem List: (1) NSTEMI (non-ST elevated myocardial infarction) ICD Code: I21.4 Status: Acute (2) Chest pain ICD Code: R07.9 Status: Acute (3) Anxiety ICD Code: F41.9 Status: Acute Assessment and Plan 40-year-old female with history of hypertension, asthma, tobacco use, anxiety, bipolar disorder, presents with acute onset of chest pain today 08/08. NSTEMI: Troponins elevated at 1.39 --> 4.53. EKG reviewed, shows NSR, no acute ST changes to suggest ischemia. Pt has hx of NSTEMI 2013 with cardiac catheterization by Dr. Vail showed normal coronary arteries. -Continue trend serial cardiac enzymes and EKGs. Trop 1.39 - 4.53 - 2.86 -Continue IV heparin drip -Continue aspirin, statin, BB, nitro paste -IV morphine prn chest pain -Monitor on telemetry -Check lipid panel and HgbA1c --> pending -Cardiology consulted, PAtient seen by Dr ROJAS who recommended cardiac catheterization. -Lipid profile showed total cholesterol is 119, LDL cholesterol 97 and HDL cholesterol 47.8, continue statin. Anxiety: acute on chronic. S/p IV ativan in the ED. Patient still very tearful/ anxious on exam. -continue Xanax 0.5mg po q8h prn anxiety -consult psychiatry. The patient was evaluated by Dr. Sharpe who recommended sinus with the patient's in the hospital and to follow-up with Brian Lower[facility]. - Strong recommendation abstain from marijuana to contain caffein. Elevated Hemoglobin: patient has had elevated hemoglobin on multiple visits. Consider polycythemia. -EPO and JAK2 are pending -We'll consult hematology. Hypertension: chronic, not on meds -started on metoprolol -BP very elevated and uncontrolled. Systolic blood pressure up to the 140s to 150s. I will start the patient on lisinopril. -monitor BP, adjust antihypertensives as needed Tobacco Use: chronic, patient motivated to quit -counseled on cessation -avoid nicotine patch for now due to vasoconstriction DVT Prophylaxis: on Heparin drip Rangel Allen,Jerzy MD Aug 09, 2016 17:34
--- NOTE | 2016-08-09 17:41 | CATHPROC ---
[employer] HIS Report Study Information Study Number Admission Scheduled Start Study Start [id number] Aug 08 2016 11:01AM 08/09/2016 Aug 09 2016 5:04PM [place] Service Cardiac Catheterization Admit Source Facility Department Other [facility] - C Programmer Physician and Clinical Staff Initial MD Mcgovern, Aureliano Heading Up Machine OperatorDion Zhao,MASON Heading Up Machine OperatorArabella Maldonado,MASON/BA Recorder Kianna Pendleton,DIVE SUPERVISOR TECH2 Scrub Melecio Fiore,RT(R) Procedures Performed Procedure Location (Site) Vessel Name Coronary Angiograms LCA Left Coronary Coronary Angiograms RCA Right Coronary LV Gram-hand inj. LV LV Ventricle Equipment Time Foot And Ankle Surgeon Description Size Mfg Part Number Used/Scraped TRANSDUCER, TRUWAVE [id number] 17:06 TERRELL ARREDONDO * Used W/STOCKCOCK *[id number] *[id number] *[id number] 17:06 Blackstrap PACK, CCL CUSTOM * Used *[id number] 17:06 Blackstrap SUPPORT, ARTERIAL ADULT [id number] Used BAND, RADIAL COMPRESSION TR [id number] 17:29 [employer] MEDICAL 24CM Used SHORT 24 *[id number] 17:06 [employer] WIRE, 3MMJ .035 180CM 180CM Used *[id number] 17:06 NAMIC MANIFOLD, 4 PORT * Used *[id number] 17:06 NYCOMED OMNIPAQUE, 350 MG, 150ML 150ML [id number] Used [id number] 17:06 [employer] MEDICAL BLANKET,WARM AIR CCL * Used *[id number] SHEATH, FR6 TRANSRADIAL 17:06 Vouched[employer] FR 6 [id number] Used SLENDER 10CM History: Allergies Allergy Reaction Triaminic HIVES History: Risk Factors Family History of Hypertension Dyslipidemia Previous FL Previous Heart Failure Premature CAD Yes No Yes Yes No Prior Valve Prior PCI Prior PCIDate Prior CABG Surgery No Yes 03/01/2013 No Cerebrovascular Peripheral Artery Chronic Lung On Dialysis Diabetes Disease Disease Disease No No No No No History: Symptoms/Diagnosis Selection Items Chest pain History: CV Disease Selection Items Known CAD FL History: Stress Tests Stress or Imaging Studies Performed No History: Other Disease Selection Items CAD HTN History: FL/CV Data Previous Cath Date 03/01/2013 History: Other Current Smoker Method Packs a Day Years Used Pack Years Yes Cigarettes 1 27 27 Labs Hgb (g/dl) Hct (%) WBC (l/cumm) Platelets (thousands) 12.00-18.00 37.00-55.00 4.80-10.80 140.00-450.00 15.9 47.8 7.9 206 Glucose (mg/dl) BUN (mg/dl) Creatinine (mg/dl) BUN:Creatinine (1:x) 60.00-110.00 8.00-20.00 0.10-9.00 10.00-20.00 11 9 0.8 11.3 Na (meq/l) K (meq/l) 138.00-146.00 3.80-5.10 141 4 Medication Medication Total Dose (Bolus/Oral) Medication Total Dosage/Unit 1% XYLOCAINE 20 mL FENTANYL 100 mcg RADIAL COCKTAIL 5 mL (Bolus) VERSED 4 mg Medications (Bolus/Oral) Medication Time Given Dosage/Unit Administered By Reason VERSED 08/09/2016 5:15:20 PM 2 mg Martinez-Shon, Aureliano 2 mg VERSED given in lab by Aureliano Mcgovern in Left Antecubital via Peripheral IV. Ordered by Aureliano Navas. FENTANYL 08/09/2016 5:16:57 PM 50 mcg Juan-Shon Aureliano 50 mcg FENTANYL given in lab by Aureliano Mcgovern via Peripheral IV. Ordered by Aureliano Mcgovern. VERSED 08/09/2016 5:20:48 PM 2 mg Martinez-Shon, Aureliano 2 mg VERSED given in lab by Aureliano Mcgovern in Left Antecubital via Peripheral IV. Ordered by Aureliano Navas. FENTANYL 08/09/2016 5:21:09 PM 50 mcg Dion Herrera 50 mcg FENTANYL given in lab by Dion Herrera RN in Left Antecubital via Peripheral IV. Ordered by Aureliano Mcgovern. 1% XYLOCAINE 08/09/2016 5:21:13 PM 20 mL Juan-Shon Aureliano 20 mL 1% XYLOCAINE given in lab by Aureliano Mcgovern in Right Radial via Subcutaneous. Ordered by Aureliano Rivera. Ntg 200mcg Verapamil 2.5mg Heparin RADIAL COCKTAIL 08/09/2016 5:21:51 PM 5 mL (Bolus) Aureliano Mcgovern 2500U 5 mL (Bolus) RADIAL COCKTAIL given in lab by Aureliano Mcgovern in Right Radial via Radial. Using [Anabel ution Name]. Ordered by Aureliano Mcgovern. Reason: Ntg 200mcg Verapamil 2.5mg Heparin 2500U. Medication (Drip) Medication Time Given Dosage/Unit Concentration/Unit Diluent (ml) Solution IV Solutions 08/09/2016 5:04:24 PM 0 mL (IV) NaCl .9 IV Solutions given in lab by Dion Herrera, MASON in Left Antecubital via Peripheral IV. Pump/Drip Flow = 20 ml/hr using NaCl .9. Ordered by Aureliano Mcgovern. Initial Case Assessment Cardiovascular HR NIBP 65 167/108 Edema Present Skin color Skin None Normal Warm Dry Circulatory - Right Pulses Dorsalis Pedis Femoral Radial 3 3 3 Scale (0,1,2,3,4,d) Circulatory - Left Pulses Dorsalis Pedis Femoral Radial 3 3 Scale (0,1,2,3,4,d) Neurological State Oriented to time-place- Alert Moves all extremities person Respiration - General Respiration Rate SpO2 (%) (B/min) 19 99 Final Case Assessment Cardiovascular HR NIBP 67 150/110 Edema Present Skin color Skin None Normal Warm Dry Circulatory - Right Pulses Dorsalis Pedis Femoral Radial 3 3 3 Scale (0,1,2,3,4,d) Circulatory - Left Pulses Dorsalis Pedis Femoral Radial 3 3 Scale (0,1,2,3,4,d) Neurological State Oriented to time-place- Alert Moves all extremities person Respiration - General Respiration Rate SpO2 (%) (B/min) 11 99 Chronological Log Time Study Chronological Log 17:00:00 Patient arrived via Bed. 17:04:05 Patient Name, D.O.B, / Armband Verified By R.N. 17:04:06 Consent signed by the physician and the patient and verified by the C Programmer staff. Vitals capture started with the following parameters, Patient=Adult, Interval=5 min, Initial Pr tptqeu=618 mmHg, 17:04:12 Deflation Rate=5 mmHg 17:04:14 Pre-op and post- op instructions given; patient acknowledges understanding of instructions. 17:04:15 Patient has been NPO for More than 6Hrs. 17:04:17 Skin Breakdown- 17:04:18 Patient Warmer Placed on the Table. 17:04:20 Maggy Prominences Protected 17:04:23 A # 20 IV was noted in the Antecubital (right). Grade = 0 IV Solutions given in lab by Dion Herrera, RN in Left Antecubital via Peripheral IV. Pump/Dri p Flow = 20 ml/hr using 17:04:24 NaCl .9. Ordered by Aureliano Mcgovern. 17:04:24 History and physical on the chart or being dictated. 17:04:31 Allens test performed on the right radial and ulnar artery. 17:05:24 A # 20 IV was noted in the Antecubital (left). Grade = 0 17:05:25 HR=65 bpm, YZIM=891/108 mmhg, SpO2=99.0 %, Resp=19 B/min, Pain=0, Ronald=10, Morton=2 Assessment: Initial Case, HR=65 BPM, UCOY=836/108 mmhg, Edema=None, Color=Normal, Skin = Warm, Dry Right Pulses: Ryan Ped=3, Femoral=3, Radial=3 17:07:10 Left Pulses: Ryan Ped=3, Femoral=3 Neurological: State=Alert, Ox3, DAN Respiration: Resp=19 B/min, SpO2=99 % 17:07:27 Reference ECG taken 17:09:47 HR=61 bpm, GSRG=830/112 mmhg, SpO2=99.0 %, Resp=20 B/min, Pain=0, Ronald=10, Morton=2 17:10:22 Right Radial and right groin prepped with 2% chlorhexidine, and with a 3 min. waiting time. 17:14:46 HR=62 bpm, UABJ=379/103 mmhg, AjA2=257.0 %, Resp=15 B/min, Pain=0, Ronald=10, Morton=2 17:15:20 2 mg VERSED given in lab by Aureliano Mcgovern in Left Antecubital via Peripheral IV. Ordere d by Aureliano Mcgovern. 17:16:57 50 mcg FENTANYL given in lab by Aureliano Mcgovern via Peripheral IV. Ordered by Aureliano Mcgovern. 17:19:32 Pressure channel 1 zeroed. 17:19:49 HR=57 bpm, UQUF=212/107 mmhg, SpO2=96.0 %, Resp=15 B/min, Pain=0, Ronald=10, Morton=2 Time Out. Correct patient, correct procedure,correct physician, ,power injector loaded or not l oaded with contrast with 17:20:06 surgical team present. Time Out Concurred by MD, individual staff and QC SCIENTIST in procedure 17:20:48 2 mg VERSED given in lab by Aureliano Mcgovern in Left Antecubital via Peripheral IV. Ordere d by Aureliano Mcgovern. 17:21:09 50 mcg FENTANYL given in lab by Dion Herrera, MASON in Left Antecubital via Peripheral IV. O rdered by Aureliano Mcgovern. 17:21:12 Case Start 20 mL 1% XYLOCAINE given in lab by Aureliano Mcgovern in Right Radial via Subcutaneous. Ordered by Shaniqua 17:21:13 Aureliano. 17:21:19 Access site was Radial Artery. A SHEATH, FR6 TRANSRADIAL SLENDER 10CM FR 6 was advanced into the Radial (right) using the Oanh fied Seldinger 17:21:27 technique. 5 mL (Bolus) RADIAL COCKTAIL given in lab by Aureliano Mcgovern in Right Radial via Radial. in g [Solution Name]. 17:21:51 Ordered by Aureliano Mcgovern. Reason: Ntg 200mcg Verapamil 2.5mg Heparin 2500U. A JR 4.0 INFINITI CATHETER FR 5 was advanced over a wire. OMNIPAQUE, 350 MG, 150ML 150ML was us ed for 17:23:47 injections. Recorded Pressure: LV, HR=66, Condition=Condition 1 17:23:48 (Left Ventricle) LV 153/14/17 17:24:08 The LV was manually injected with 10 cc's and visualized. OMNIPAQUE, 350 MG, 150ML 150ML us ed. Recorded Pressure: LV, Ao, HR=63, Condition=Condition 1 17:24:28 (Left Ventricle) LV 144/13/10, (Aorta) Ao 140/80/110 17:24:46 HR=64 bpm, SPNA=621/96 mmhg, SpO2=93.0 %, Resp=16 B/min, Pain=0, Ronald=10, Morton=2 17:25:00 The RCA was injected and visualized at various angles. OMNIPAQUE, 350 MG, 150ML 150ML used . Recorded Pressure: Ao, HR=65, Condition=Condition 1 17:26:40 (Aorta) Ao 140/89/110 17:26:58 Catheter was removed A JL 3.5 INFINITI CATHETER FR 5 was advanced over a wire. OMNIPAQUE, 350 MG, 150ML 150ML was us ed for 17:26:59 injections. 17:27:09 The LCA was injected and visualized at various angles. OMNIPAQUE, 350 MG, 150ML 150ML used . 17:28:48 Catheter was removed 17:28:53 Case End 17:29:00 Catheter(s) removed without difficulty Radial Compression Device Used. 15 mLs of air placed in BAND, RADIAL COMPRESSION TR SHORT 24 24 CM. Affected 17:29:02 hand 92 % O2 saturation. 17:29:45 HR=62 bpm, SYXG=109/88 mmhg, SpO2=92.0 %, Resp=14 B/min, Pain=0, Ronald=10, Morton=2 17:29:59 No case complications noted. 17:30:00 Cine recording checked. 17:35:23 HR=67 bpm, KWEQ=976/110 mmhg, SpO2=99.0 %, Resp=11 B/min, Pain=0, Ronald=10, Morton=2 Assessment: Final Case, HR=67 BPM, ESGY=356/110 mmhg, Edema=None, Color=Normal, Skin = Warm, D ry Right Pulses: Ryan Ped=3, Femoral=3, Radial=3 17:35:26 Left Pulses: Ryan Ped=3, Femoral=3 Neurological: State=Alert, Ox3, DAN Respiration: Resp=11 B/min, SpO2=99 % 17:37:18 Vitals capture stopped. End Study - Contrast Media Used In Study Contrast Total Opened (mL) Total Used (mL) Total Wasted (mL) Omnipaque 25 25 0 End Study - Maximum Contrast Load Max Contrast Load (mL) 462.5 End Study - Radiation Exposure Fluoro Time (minutes) 1.9 End Study - Patient Disposition Complications Transferred To No Telemetry Bed
--- NOTE | 2016-08-09 17:56 | MB ---
cc: BRAYDON ROE DATE OF CONSULTATION: 08/09/2016. REASON FOR CONSULTATION: Interventional cardiology consultation for non-S-T elevation myocardial infarction. HISTORY OF PRESENT ILLNESS: 40-year-old female with past medical history significant for tobacco abuse, asthma and supraventricular tachycardia who presented to the emergency department complaining of chest pain and palpitations. She reports that over the last three years she has been having sudden onset of rapid heartbeat lasting for seconds which resolve; however, this time these palpitations lasted for more than an hour and were associated with substernal chest pressure for which she came to the emergency department. She was subsequently admitted to the [facility] and a cardiac workup revealed a troponin elevation of 1.3, 4.5, and 2.86 for which interventional cardiology has been consulted for further management. PAST MEDICAL HISTORY: 1. Smoker. 2. Asthma. 3. Supraventricular tachycardia. 4. Urinary tract infections. 5. section. 6. Hypertension. HOME MEDICATIONS: Aspirin. SOCIAL HISTORY: She smokes one pack of cigarettes per day. She drinks alcohol socially. FAMILY HISTORY: No history of premature coronary artery disease. REVIEW OF SYSTEMS: Negative except for that mentioned in the history of present illness. PHYSICAL EXAMINATION: VITAL SIGNS: Temperature 97, pulse 61, respiratory rate 18, blood pressure 146/90, 02 saturation 98% on room air. GENERAL: She is awake, alert and oriented times three in no acute distress. HEAD, EYES, EARS, NOSE, THROAT/NECK: The patient has no jugular venous distention. No carotid bruits. HEART: Regular rate and rhythm. LUNGS: Clear to auscultation bilaterally. ABDOMEN: The abdomen is obese. Positive bowel sounds. The abdomen is soft, nontender and nondistended. EXTREMITIES: There is no cyanosis or edema. Pulses throughout. DATA: CBC: Hemoglobin 15, hematocrit of 47, platelet of 206,000. INR 0.9. Chemistries: Sodium 141, potassium 4.0, BUN 9, creatinine 0.85. Troponin 1.39, 4.53, 2.86. TSH 2.0. Cholesterol 119, LDL 97, HDL 47. Toxicology positive for cannabinoids. INR 0.9. Chest x-ray shows no acute cardiopulmonary process. EKG: Sinus rhythm with poor R-wave progression. ASSESSMENT: 40-year-old female with above history and findings presented with palpitations and chest pressure and elevated cardiac markers concerning for ACS. Telemetry overnight shows no signs of tachy or bradyarrhythmias. She is currently chest pain-free; however, anxious. Her troponin are markedly elevated, which may be due to demand ischemia from the SVT; however, given her cardiac risk factors, I think it would be appropriate to offer her a left heart cath to further assess coronary anatomy before EP work up. Risks, benefits of left heart cath / percutaneous coronary intervention including but not limited to bleeding, acute kidney injury, infection, neurovascular trauma, stroke, emergent bypass surgery and have been explained to the patient. The patient understands risks and she is willing to proceed. RECOMMENDATIONS: 1. Keep n.p.o. for the left heart cath today. 2. Continue aggressive medical management for coronary artery disease. Thank you for the opportunity to take part in the care of this patient. Further therapy to be determine MD CORINNE Fowler/JCC /3:12 PM /5:52 PM SHIMON
--- NOTE | 2016-08-09 19:20 | MA ---
cc: XIMENABRAYDON Herrera DATE 08/09/2016 DATE OF 1975 PROCEDURE PERFORMED 1. Left heart catheterization. 2. Selective right and left coronary angiography. 3. Left ventriculogram. INDICATION [id number] AZ / chest pain / SVT. DESCRIPTION OF PROCEDURE Consent signed. The patient was brought into the cardiac manager cath lab in a fasting state. The right wrist was prepped and draped in sterile fashion. Using 1% lidocaine for local anesthesia and a micropuncture kit a 6-German sheath was inserted into the right radial artery. Antispasmodic cocktail given. Then selective right and left coronary angiography was performed with a JR-4 and a JL -3.5 diagnostic catheters. This was followed by introducing the JR catheter into the left ventricle followed by pressure recordings, ventriculogram and pullback. All catheters were exchanged over a wire. The patient tolerated the procedure well without complications. Estimated blood loss less than 30 mL. Total contrast used 80 mL. The right radial access site was closed with a TR band. RESULTS LEFT VENTRICLE. The left ventricular pressure was 144/13 with an LVEDP of 10. The aortic pressure was 140/89 with a mean of 110. There was no gradient upon pullback from the left ventricle to aorta. Left ventriculogram revealed a symmetric neetu ventricle with an estimated ejection fraction of 60%. ANGIOGRAPHY 1. Right coronary artery is a dominant vessel. It has nonobstructive coronary artery disease and RV branch with the takeoff in the mid segment of the right coronary artery. The PDA is a big vessel. It is patent with nonobstructive coronary artery disease. The right coronary artery also gives off two big posterolateral branches which are open with no obstructive coronary artery disease and ALIYAH III flow. 2. The left main is long and patent to the LAD. It is a big transapical vessel. It has minimal luminal irregularities. It has three prominent diagonal branches which are patent with ALIYAH III flow and nonobstructive coronary artery disease. 3. Left circumflex. She has a small, very tiny, left circumflex artery with actually all her lateral wall is giving off by the diagonals and the OM are coming from the right coronary artery. CONCLUSION 1. Nonobstructive coronary artery disease. 2. Preserved left ventricle systolic function. RECOMMENDATIONS Continue primary prevention for coronary artery disease. Dr. Moody consult for EP study. MD CHERISE Fowler /5:38 PM /7:04 PM [facility]
[2016-08-10] VITALS (29 sets, daily range): BP systolic 129–153; BP diastolic 76–100; PULSE 48–64; RESP 18–20; TEMP 97.7–98.4; O2SAT 95–100
[2016-08-10] MEDS: ALPRAZolam 0.5 MG TAB PO PRN ×2 (03:26→16:29)
[2016-08-10] MEDS: LISINOPRIL 20 MG TAB PO SCH (08:40)
[2016-08-10] MEDS: METOPROLOL TARTRATE 25 MG TAB PO SCH ×2 (08:40→22:00)
[2016-08-10] MEDS: ASPIRIN EC 81 MG TABEC PO SCH (08:40)
[2016-08-10] MEDS: ATORVASTATIN 40 MG TAB PO SCH (08:40)
[2016-08-10] MEDS: SODIUM CHLORIDE 0.9% FLUSH 10 ML FLUSH IV FLUSH SCH ×2 (08:41→23:50)
--- NOTE | 2016-08-10 13:29 | HHI.PR ---
Subjective Remarks deferred entry - patient seen at 12:15 Patient denies cp/sob anxiety better stable vital signs Objective Vitals Vital Signs Date Time Temp Pulse Resp B/P Pulse Ox O2 Delivery O2 Flow Rate FiO2 08/10/16 13:07 54 08/10/16 12:03 60 08/10/16 11:30 60 08/10/16 11:30 98.4 60 18 129/76 99 08/10/16 10:29 56 08/10/16 09:01 54 08/10/16 08:12 52 08/10/16 07:36 97.7 63 18 150/92 99 08/10/16 07:36 63 08/10/16 07:36 99 Room Air 08/10/16 06:00 59 08/10/16 05:00 58 08/10/16 04:00 98.4 53 18 137/90 98 08/10/16 04:00 Room Air 08/10/16 04:00 53 08/10/16 03:00 55 08/10/16 02:00 57 08/10/16 01:00 53 08/10/16 00:00 Room Air 08/10/16 00:00 98.2 54 20 131/80 98 08/10/16 00:00 54 08/09/16 23:00 53 08/09/16 22:00 57 08/09/16 21:00 54 08/09/16 20:00 98.0 54 20 157/95 97 08/09/16 20:00 Room Air 08/09/16 20:00 55 08/09/16 16:57 65 08/09/16 15:43 97.8 60 18 171/111 98 08/09/16 15:42 56 08/09/16 14:29 61 I/O 08/09/16 08/09/16 08/09/16 08/10/16 08/10/16 08/10/16 06:59 14:59 22:59 06:59 14:59 22:59 Intake Total 350 ml 540 ml 480 ml Output Total 350 ml 700 ml Balance 0 ml 540 ml -220 ml Intake Oral 240 ml 400 ml 480 ml IV Total 110 ml 140 ml Output Urine Total 350 ml 700 ml Stool Total 0 ml # Voids 4 # Bowel Movements 0 Result Diagram: 08/08/16 0908 08/08/16 0908 Imaging Last Impressions Chest X-Ray 08/08/16 0858 Signed Impressions: Service Date/Time: Monday, August 08, 2016 09:09 - CONCLUSION: No acute disease. Will Vogel MD FACR Objective Remarks GENERAL: Well-nourished, well-developed middle aged female patient in NAD. SKIN: Warm and dry. No rash. HEAD: Normocephalic. Atraumatic. EYES: Pupils equal and round. No scleral icterus. No injection or drainage. ENT: No nasal bleeding or discharge. Mucous membranes pink and moist. NECK: Supple. Trachea midline. Thyroid exam unremarkable. CARDIOVASCULAR: Regular rate and rhythm. S1, S2 noted. No murmur appreciated. RESPIRATORY: No accessory muscle use. Clear to auscultation. Breath sounds equal bilaterally. GASTROINTESTINAL: Abdomen soft, non-tender, nondistended. Normoactive bowel sounds x4. MUSCULOSKELETAL: No obvious deformities. Extremities without clubbing, cyanosis , or edema. NEUROLOGICAL: Awake and alert. No obvious cranial nerve deficits. Motor grossly within normal limits. Normal speech. PSYCHIATRIC: Tearful, anxious; insight and judgment normal. Medications and IVs Current Medications Medications (Trade) Dose Ordered Sig/Vannessa Route Start Time Stop Time Status Last Admin (NS Flush) 2 ml UNSCH PRN IVF 08/08/16 09:00 (Heparin Inj) 5,000 units UNSCH PRN IV 08/08/16 17:00 Heparin Sodium (Porcine) 2500 units 2,500 units UNSCH PRN IV 08/08/16 17:00 08/08/16 21:39 (Heparin-D5W Inj) 250 ml @ 0 mls/hr TITRATE IV 08/08/16 11:00 08/08/16 12:34 (Zofran Inj) 4 mg Q6H PRN IV 08/08/16 11:00 08/08/16 15:40 (Tylenol) 650 mg Q4H PRN PO 08/08/16 11:00 08/08/16 21:48 (NS Flush) 2 ml BID IV FLUSH 08/08/16 21:00 08/10/16 08:41 (Lipitor) 40 mg DAILY PO 08/09/16 09:00 08/10/16 08:40 (Ecotrin Ec) 162 mg DAILY PO 08/09/16 09:00 08/10/16 08:40 (Lopressor) 25 mg Q12HR PO 08/08/16 21:00 08/10/16 08:40 (Morphine Inj) 2 mg Q3H PRN IV PUSH 08/08/16 17:30 (Xanax) 0.5 mg Q8H PRN PO 08/08/16 17:30 08/10/16 03:26 (Prinivil) 20 mg DAILY PO 08/09/16 17:45 08/10/16 08:40 A/P Problem List: (1) NSTEMI (non-ST elevated myocardial infarction) ICD Code: I21.4 Status: Acute (2) Chest pain ICD Code: R07.9 Status: Acute (3) Anxiety ICD Code: F41.9 Status: Acute Assessment and Plan 40-year-old female with history of hypertension, asthma, tobacco use, anxiety, bipolar disorder, presents with acute onset of chest pain today 08/08. NSTEMI: Troponins elevated at 1.39 --> 4.53. EKG reviewed, shows NSR, no acute ST changes to suggest ischemia. Pt has hx of NSTEMI 2013 with cardiac catheterization by Dr. Vail showed normal coronary arteries. -Continue trend serial cardiac enzymes and EKGs. Trop 1.39 - 4.53 - 2.86 -Continue IV heparin drip -Continue aspirin, statin, BB, nitro paste -IV morphine prn chest pain -Monitor on telemetry -Check lipid panel and HgbA1c --> pending -Cardiology consulted, PAtient seen by Dr ROJAS who recommended cardiac catheterization. -Lipid profile showed total cholesterol is 119, LDL cholesterol 97 and HDL cholesterol 47.8, continue statin. -08/10 H&E status post cardiac catheterization on 08/09 which showed nonobstructive CAD. Cardiology recommended EPS study. Dr. Moody has been consulted w Dr ROJAS. Anxiety: acute on chronic. S/p IV ativan in the ED. Patient still very tearful/ anxious on exam. -continue Xanax 0.5mg po q8h prn anxiety -consult psychiatry. The patient was evaluated by Dr. Sharpe who recommended continuation of Xanax while the patient is in hospital in the hospital and to follow-up with [facility]. - Strong recommendation to abstain from marijuana substances containing caffeine. Elevated Hemoglobin: patient has had elevated hemoglobin on multiple visits. Consider polycythemia vs secondary to chronic smoking. -EPO and JAK2 are pending -Consult hematology. Hypertension: chronic, not on meds -started on metoprolol -BP very elevated and uncontrolled. Systolic blood pressure up to the 140s to 150s. I will start the patient on lisinopril. -monitor BP, adjust antihypertensives as needed Tobacco Use: chronic, patient motivated to quit -counseled on cessation -avoid nicotine patch for now due to vasoconstriction DVT Prophylaxis: on Heparin drip Discharge Planning DC Pending EPS and hematology consult Jerzy Richard MD Aug 10, 2016 13:29
[2016-08-10 16:08] LABS: AUTOMATED NEUTROPHIL # 4.9 TH/MM3 (1.8-7.7); BASOPHIL % 0.3 % (0.0-2.0); EOSINOPHIL # 0.1 TH/MM3 (0-0.4); HEMATOCRIT 45.6 % (35.0-46.0); HEMO FLAGS DIFF FINAL; LYMPH % 32.1 % (9.0-44.0); LYMPHOCYTE # 2.8 TH/MM3 (1.0-4.8); MEAN CELL VOLUME 93.1 FL (80.0-100.0); MEAN CORPUSCULAR HEMOGLOBIN 30.4 PG (27.0-34.0); MEAN CORPUSCULAR HGB CONC 32.7 % (32.0-36.0); MONO % 9.3 % (0.0-8.0); NEUT % 57.3 % (16.0-70.0); PLATELET COUNT 187 TH/MM3 (150-450); RED CELL DISTRIBUTION WIDTH 13.7 % (11.6-17.2); WHITE BLOOD COUNT 8.6 TH/MM3 (4.0-11.0)
[2016-08-10 16:29] LABS: ANION GAP 8 MEQ/L (5-15); AST (GOT) 19 U/L (15-37); BICARBONATE 25.4 MEQ/L (21.0-32.0); BLOOD UREA NITROGEN 7 MG/DL (7-18); CHLORIDE 108 MEQ/L (98-107); GLOMERULAR FILTRATION RATE 83 ML/MIN (>89); POTASSIUM 4.1 MEQ/L (3.5-5.1); SODIUM (NA) 141 MEQ/L (136-145)
[2016-08-10 16:31] LABS: HEMOGLOBIN A1b 1.5 %; HEMOGLOBIN Ao 86.2 %; HEMOGLOBIN LA1C 1.5 %; HEMOGLOBIN P3 3.5 %
[2016-08-10 16:32] LABS: ALKALINE PHOSPHATASE 63 U/L (45-117); ALT (GPT) 19 U/L (10-53); TOTAL BILIRUBIN ADULT 0.5 MG/DL (0.2-1.0)
[2016-08-10 16:33] LABS: BETA HCG QUANT LESS THAN 1 MIU/ML (0-5)
[2016-08-10] MEDS ORDERED: PROPOFOL 200 MG/20 ML AMP IV ONE (19:05)
[2016-08-10] MEDS ORDERED: SODIUM CHLOR 0.9% 250 ML INJ 250 ML ONE (19:28)
[2016-08-10] MEDS ORDERED: ISOPROTERENOL HCL 1 MG/5 ML AMP ONE (19:29)
[2016-08-10] MEDS ORDERED: MIDAZOLAM HCL 2 MG/2 ML VIAL ONE (19:46)
[2016-08-10] MEDS ORDERED: ONDANSETRON HCL 4 MG/2 ML VIAL IV PRN (20:15)
[2016-08-10] MEDS ORDERED: SODIUM CHLOR 0.9% 250 ML INJ 250 ML IV PRN (20:15)
[2016-08-10] MEDS ORDERED: oxyCODONE/ACETAMINOPHEN 5 MG/325 MG TAB PO PRN ×2 (20:15)
[2016-08-10] MEDS ORDERED: BACITRACIN OINT 0.9 GM PKT TOP ONE (20:15)
[2016-08-10] MEDS ORDERED: ATROPINE SULFATE 1 MG/ML VIAL IV PRN (20:15)
[2016-08-10] MEDS ORDERED: LIDOCAINE HCL 1% 50 ML VIAL INFIL PRN (20:15)
[2016-08-10] MEDS ORDERED: LORazepam 2 MG/ML VIAL IV PRN (20:15)
[2016-08-10] MEDS ORDERED: METOCLOPRAMIDE HCL 10 MG/2 ML VIAL IV PRN (20:15)
--- NOTE | 2016-08-10 20:22 | CATHPROC ---
SocialRep HIS Report Study Information Study Number Admission Scheduled Start Study Start [id number] 08/08/2016 08/10/2016 Aug 10 2016 6:35PM Referring Institution Admit Source Facility Department 1 Other [facility] - Senior Software Engineer Physician and Clinical Staff Initial Arya Dos Santos Portfolio Strategist Josh Lopez,RT(R) Other Anesthesia, COMMODITIES TRADER Recorder Araceli Hernandez,MASON Scrub Jil Ortiz RCIS Equipment Time Patient Registration Manager Description Size Mfg Part Number Used/Scraped CATHETER, BIFURCATED 19:59 ANGIO-DYNAMICS FR 5 [id number] Used INFUSION BENEPHIT [id number] 19:06 [employer] PACK, CCL CUSTOM * Used *[id number] 19:06 [employer] PACER WINSTON, LIMB * 2530 *[id number] Used [id number] 19:06 [employer] BLANKET,WARM AIR CCL * Used *[id number] 19:59 [employer] CATHETER, JSN, QUAD FR 5 Used *[id number] 19:39 [employer] CATHETER, JSN, QUAD FR 5 Used *[id number] 19:39 [employer] CATHETER, JSN, QUAD FR 5 Used *[id number] [id number] 19:39 [employer] CATHETER, JSN, QUAD FR 5 Used *[id number] 19:39 [employer] CATHETER, JSN, QUAD FR 5 Used *[id number] 19:06 [employer] ELECTRODE KIT, GAYLE X SURFACE * [id number] Used [id number] 19:39 [employer] SHEATH, EPS, FR5 FAST CATH FR 5 Used *[id number] 19:39 [employer] SHEATH, EPS, FR5 FAST CATH FR 5 Used *[id number] 921892 19:39 [employer] SHEATH, EPS, FR5 FAST CATH FR 5 Used *[id number] 19:39 [employer] SHEATH, EPS, FR6 FAST CATH FR [address] [id number] Used 19:39 [employer] SHEATH, EPS, FR8 FAST CATH FR [id number] [facility] PAD, ELECTROSURGICAL 19:06 * [id number] *[id number] Used SURGICAL GROUNDING (BLUE) History: Allergies Allergy Reaction Triaminic HIVES History: Risk Factors Hypertension Yes Chronic Lung Disease Labs Hgb (g/dl) Hct (%) RBC (MIL/MM3) WBC (l/cumm) Platelets (thousands) 12.00-18.00 37.00-55.00 4.80-6.20 4.80-10.80 140.00-450.00 15.0 47 5.2 7.9 206 Glucose (mg/dl) BUN (mg/dl) Creatinine (mg/dl) BUN:Creatinine (1:x) 60.00-110.00 8.00-20.00 0.10-9.00 10.00-20.00 111 9 0.8 11.3 Na (meq/l) K (meq/l) 138.00-146.00 3.80-5.10 141 4 INR (PTT:PT) 0.50-2.00 0.9 Medication Medication Total Dose (Bolus/Oral) Medication Total Dosage/Unit 1% XYLOCAINE 40 mL Medications (Bolus/Oral) Medication Time Given Dosage/Unit Administered By Reason 1% XYLOCAINE 08/10/2016 7:44:34 PM 20 mL Arya Moody 20 mL 1% XYLOCAINE given in lab by Arya Moody in Left Groin via Subcutaneous. Ordered by Jose Maria Moody. 1% XYLOCAINE 08/10/2016 7:46:28 PM 20 mL Arya Moody 20 mL 1% XYLOCAINE given in lab by Arya Moody in Right Groin via Subcutaneous. Ordered by Jeanette Moody. Medication (Drip) Medication Time Given Dosage/Unit Concentration/Unit Diluent (ml) Solution ISUPREL 08/10/2016 7:59:11 PM 4 mcg/min 1 mg 250 NaCl .9 4 mcg/min ISUPREL given in lab by DEBBIE Wolff via Peripheral IV. Pump/Drip Flow = 60 ml/hr using NaCl .9 with a concentration of 1 mg in 250 ml. Ordered by Arya Moody. Reason: As per physicians verbal order. Initial Case Assessment Cardiovascular HR Rhythm NIBP Chest Pain 47 SB 133/83 0 Edema Present Skin color Skin None Normal Warm Circulatory - Right Pulses Dorsalis Pedis 2 Scale (0,1,2,3,4,d) Circulatory - Left Pulses Dorsalis Pedis 2 Scale (0,1,2,3,4,d) Circulatory - Lower Extremities Color Lower Right Color Lower Left Normal Normal Neurological State Oriented to time-place- Alert Moves all extremities person Respiration - General Respiration Rate SpO2 (%) (B/min) 20 100 Final Case Assessment Cardiovascular HR Rhythm NIBP Chest Pain 65 sr 103/61 0 Edema Present Skin color Skin None Normal Warm Dry Circulatory - Right Pulses Dorsalis Pedis 2 Scale (0,1,2,3,4,d) Circulatory - Left Pulses Dorsalis Pedis 2 Scale (0,1,2,3,4,d) Circulatory - Lower Extremities Color Lower Right Color Lower Left Normal Normal Neurological State Oriented to time-place- Alert Moves all extremities person Respiration - General Respiration Rate SpO2 (%) (B/min) 18 100 Chronological Log Time Study Chronological Log 19:05:35 Patient arrived via Bed. 19:06:05 Anesthesia at bedside. Assumes care of patient. MAYANK 19:06:51 Patient Name, D.O.B, / Armband Verified By R.N. 19:06:53 Consent signed by the physician and the patient and verified by the Senior Software Engineer staff. 19:06:54 Pre-op and post- op instructions given; patient acknowledges understanding of instructions. 19:06:55 Verbal Stimulation=2 Physical Stimulation=2 Airway=2 Respiration=2 TOTAL=8. (0=absent, 1=li mited, 2=present) 19:06:59 Patient has been NPO for More than 6Hrs. 19:07:00 Skin Breakdown- 19:07:01 Patient Warmer Placed on the Table. 19:07:02 Disposable Defibrillator Pads Placed On Patient. 19:07:03 Maggy Prominences Protected 19:07:08 A # 20 IV was noted in the Antecubital (right). Grade = 0 0.9NS KVO 19:07:09 A # 20 IV was noted in the Antecubital (left). Grade = 0 0.9NS KVO 19:07:11 History and physical on the chart or being dictated. 19:18:21 Table restraints applied according to hospital policy Assessment: Initial Case, HR=47 BPM, Rhythm=SB, DNCL=063/83 mmhg, Chest Pain=0, Edema=None, Col or=Normal, Skin = Warm Right Pulses: Ryan Ped=2 Left Pulses: Ryan Ped=2 19:19:45 Lower Right Extremities: Color=Normal Lower Left Extremities: Color=Normal Neurological: State=Alert, Ox3, DAN Respiration: Resp=20 B/min, TdS5=748 % 19:22:43 Right groin prepped with 2% chlorhexidine, and with a 3 min. waiting time. 19:28:16 Reference ECG taken 19:31:50 paged 19:39:35 Anesthesia Adrienne Time Out. Correct patient, procedure, procedure equipment, site and side verified with physicia n present. Time 19:44:00 concurred by MD, individual staff and COMMODITIES TRADER. Time Out #2 - Consents verified, patient in correct position, all results are labled and displa yed, safety precautions 19:44:14 taken, antibiotics administered. Time out concurred by MD, individual staff and COMMODITIES TRADER in procedu re 19:44:31 Case Start 19:44:34 20 mL 1% XYLOCAINE given in lab by Arya Moody in Left Groin via Subcutaneous. Ordered by Arya Moody. 19:44:46 Vascular access was obtained in the Fem Vein (left). 19:44:48 Vascular access was obtained in the Fem Vein (left). 19:44:55 Vascular access was obtained in the Fem Vein (left). 19:45:24 A SHEATH, EPS, FR5 FAST CATH FR 5 was advanced into the Fem Vein (left) using the Modified Seldinger technique. 19:45:32 A SHEATH, EPS, FR5 FAST CATH FR 5 was advanced into the Fem Vein (left) using the Modified Seldinger technique. 19:45:44 A SHEATH, EPS, FR5 FAST CATH FR 5 was advanced into the Fem Vein (left) using the Modified Seldinger technique. 19:46:28 20 mL 1% XYLOCAINE given in lab by Arya Moody in Right Groin via Subcutaneous. Ordered b Arya Martin. 19:46:54 Vascular access was obtained in the Fem Vein (right). 19:46:56 Vascular access was obtained in the Fem Vein (right). 19:47:00 A SHEATH, EPS, FR6 FAST CATH FR 6 was advanced into the Fem Vein (right) using the Modified Seldinger technique. 19:47:08 A SHEATH, EPS, FR8 FAST CATH FR 8 was advanced into the Fem Vein (right) using the Modified Seldinger technique. A CATHETER, JSN, QUAD FR 5 was advanced vis Fem Vein (left) and placed in the HIS. Placement wa s visually 19:47:15 confirmed under fluoroscopy. A CATHETER, JSN, QUAD FR 5 was advanced vis Fem Vein (left) and placed in the CS. Placement was visually 19:48:37 confirmed under fluoroscopy. A CATHETER, JSN, QUAD FR 5 was advanced vis Fem Vein (left) and placed in the RVA. Placement wa s visually 19:53:30 confirmed under fluoroscopy. A CATHETER, JSN, QUAD FR 5 was advanced vis Fem Vein (right) and placed in the HRA. Placement w as visually 19:53:50 confirmed under fluoroscopy. 19:55:28 EPS in progress. 4 mcg/min ISUPREL given in lab by Anesthesia, COMMODITIES TRADER via Peripheral IV. Pump/Drip Flow = 60 ml/hr using NaCl .9 with 19:59:11 a concentration of 1 mg in 250 ml. Ordered by Arya Moody. Reason: As per physicians verbal o rder. A CATHETER, JSN, QUAD FR 5 was advanced vis Fem Vein (left) and placed in the RVA. Placement wa s visually 19:59:38 confirmed under fluoroscopy. 20:11:18 Isuprel off. EPS complete. 20:13:03 Catheter(s) removed without difficulty 20:13:10 Sheaths removed; pressure applied to Right access sites by DC and left access sites by DB. 20:15:27 EP Procedure was performed. Assessment: Final Case, HR=65 BPM, Rhythm=sr, NTYU=230/61 mmhg, Chest Pain=0, Edema=None, Hamlet r=Normal, Skin = Warm, Dry Right Pulses: Ryan Ped=2 Left Pulses: Ryan Ped=2 20:20:10 Lower Right Extremities: Color=Normal Lower Left Extremities: Color=Normal Neurological: State=Alert, Ox3, DAN Respiration: Resp=18 B/min, YgQ1=021 % 20:20:43 Case End 20:25:02 No case complications noted. 20:25:08 Cine recording checked. 20:27:56 Sterile dressing applied to site 20:30:12 Patient moved to stretcher End Study - Contrast Media Used In Study Contrast Total Opened (mL) Total Used (mL) Total Wasted (mL) Unspecified 0 0 0 End Study - Maximum Contrast Load Max Contrast Load (mL) 481.3 End Study - Radiation Exposure Fluoro Time (minutes) 4.5 End Study - Sheaths Sheaths Pulled By Sheath Hold Time (min) Jil Ortiz 10 End Study - Patient Disposition Complications Transferred To Interventional Outcome No Telemetry Bed successful
[2016-08-10] MEDS: APIXABAN 5 MG TABLET PO SCH (22:00)
[2016-08-11] VITALS (18 sets, daily range): BP systolic 144–164; BP diastolic 89–103; PULSE 52–65; RESP 18–20; TEMP 97.4–98.7; O2SAT 96–100
--- NOTE | 2016-08-11 04:54 | EKG ---
Date Performed: 08/10/2016 Time Performed: 22:05:16 PTAGE: 40 years EKG: Sinus bradycardia Prolonged QT interval Possible left ventricular hypertrophy Extensive ST- T changes may be due to hypertrophy and/or ischemia--these are new. Abnormal ECG PREVIOUS TRACING : 08/08/2016 08.49 DOCTOR: Slick Bhatti Interpretating Date/Time 08/11/2016 04:53:54
--- NOTE | 2016-08-11 05:18 | MB ---
cc: HUSSAIN LORA M.D. DATE OF CONSULTATION August 10, [address] Rangel REASON FOR CONSULTATION Hematology is consulted to render opinion regarding patient with erythrocytosis. HISTORY OF PRESENT ILLNESS The patient is a 40-year-old female who presented to the hospital with the complaint of chest pain and palpitations. She has a history of chronic palpitations and on Wednesday she experienced midsternal chest pain with persistent palpitations. She had a history of non-ST elevation MN in the past. She also had nausea which she attributed to anxiety. She was brought into the hospital. She was found to have a hemoglobin of 15.9, hematocrit 47.8. The white blood cell count and platelet count were normal. She had cardiac catheterization yesterday. She stated her symptoms have all resolved and she is back to baseline. She has no prior history of blood clots or bleeding. She has no constitutional symptoms. She denies any pruritus. She denies any abdominal pain or early satiety. PAST MEDICAL HISTORY 1. Hypertension. 2. Asthma. 3. Anxiety. 4. Tobacco abuse. 5. Bipolar disorder. 6. Non-ST elevation MN. PAST SURGICAL HISTORY 1. D&C. 2. . 3. Cardiac cath. FAMILY HISTORY Positive for coronary disease. SOCIAL HISTORY Smoked about a pack per day for 25 years. Drinks occasionally. She smokes marijuana. ALLERGIES TRIAMINIC. MEDICATIONS 1. Lisinopril. 2. Atorvastatin. 3. Aspirin. 4. Metoprolol. REVIEW OF SYSTEMS CONSTITUTIONAL: Negative. EYES: Negative. ENT: Negative. CARDIOVASCULAR: As above. RESPIRATORY: Denies shortness of breath or cough. GI: Denies nausea, vomiting, diarrhea or abdominal pain. : No dysuria or hematuria. MUSCULOSKELETAL: Negative. HEMATOLOGY: As above. ENDOCRINE: Negative. DERMATOLOGY: Negative. PSYCHIATRIC: Negative. NEUROLOGIC: Negative. PHYSICAL EXAMINATION VITALS: Temperature 98.3, blood pressure 134/95, O2 saturation 99% on room air. GENERAL: She is alert and oriented x 3, in no acute distress. HEENT: Atraumatic, normocephalic. Pupils equal, round and reactive to light. Extraocular muscles intact. No scleral icterus. Oropharynx - dry mucosa. No lesion, no thrush. No mucositis. NECK: No thyromegaly. No palpable mass. LYMPHATIC: No palpable cervical, clavicular, axillary or inguinal lymph nodes. CARDIOVASCULAR: Regular S1 and S2. No murmur. LUNGS: Clear to auscultation without any wheezing or rhonchi. ABDOMEN: Soft, nontender. I could not palpate the liver or spleen. EXTREMITY EXAM: No cyanosis or clubbing, no edema. No calf tenderness. BACK: No paravertebral tenderness. SKIN: No rash or petechia. NEUROLOGIC: Exam nonfocal. LABORATORY DATA Reviewed ASSESSMENT 1. Erythrocytosis. When she presented two days ago her hemoglobin was 15.9. Her white blood cell count and platelet count were normal. I suspect that the mild erythrocytosis is likely due to dehydration and hemoconcentration as the patient has not been drinking much fluid lately. Other differential includes secondary erythrocytosis due to tobacco abuse. She smoked a pack per day for the last 25 years. This morning her hemoglobin has trended back down to normal at 14.9. Clinically she has no symptoms. I could not palpate any splenomegaly. I doubt that she has primary chronic myeloproliferative disorder. Erythropoietin level and JAK2 mutation tests have been sent out and results are pending. I will repeat a CBC tomorrow and if her hemoglobin is still elevated, then we can proceed with further evaluation. 2. Non-ST elevation myocardial infarction. She has elevated troponin level. The cardiac catheterization showed nonobstructive coronary disease. Cardiology is following. 3. Tobacco abuse. She smoked a pack per day for the last 25 years. 4. Anxiety and depression. 5. Asthma. 6. Hypertension. RECOMMENDATIONS 1. Repeat a CBC tomorrow. If she has persistent erythrocytosis, then we could proceed with further workup to look for secondary erythrocytosis. 2. JAK2 and erythropoietin tests are pending. Thank you Dr. Rangel for asking me to see this patient. MD EYAL Johnson/JANIE /6:10 PM /5:05 AM SHIMON
[2016-08-11 06:04] LABS: HEMATOCRIT 41.3 % (35.0-46.0); MEAN CELL VOLUME 91.7 FL (80.0-100.0); MEAN CORPUSCULAR HEMOGLOBIN 31.2 PG (27.0-34.0); PLATELET COUNT 182 TH/MM3 (150-450); RED BLOOD COUNT 4.51 MIL/MM3 (4.00-5.30); RED CELL DISTRIBUTION WIDTH 13.6 % (11.6-17.2); REVIEW FLAG FINAL; WHITE BLOOD COUNT 7.5 TH/MM3 (4.0-11.0)
--- NOTE | 2016-08-11 06:40 | MB ---
cc: LOUISE DON M.D., HANSCY M.D. DATE OF CONSULTATION August 10, 2016 REASON FOR ELECTROPHYSIOLOGY CONSULTATION Supraventricular tachyarrhythmia. HISTORY OF PRESENT ILLNESS Mrs. Nichols is a 40-year-old female with previous history of tachyarrhythmia since high school, on and off episodes, history of high blood pressure, chronic smoker. A previous episode of tachyarrhythmia since she was in high school, woke up two days ago with palpitation around 07:50 in the morning. Heart rate was high. By the time the patient called [facility], she was apparently back into sinus rhythm. On this hospitalization, the troponin increased. She had a previous left heart catheterization by Dr. Vail in 2013 that was negative for significant occlusion. The patient had a left heart catheterization yesterday by Dr. Martinez that indicates nonobstructive coronary artery disease and normal EF. I was consulted for evaluation for possible electrophysiology study and management. The chart was reviewed. The patient was evaluated. ALLERGIES TRIAMINIC. SOCIAL HISTORY The patient still smokes close to a pack of cigarettes per day. FAMILY HISTORY Noncontributory to her current medical condition. MEDICATIONS CURRENTLY 1. Heparin IV. 2. Aspirin. 3. Lipitor 40 mg a day. 4. Lisinopril 20 mg a day. 5. Metoprolol 25 mg twice a day. 6. Reglan. REVIEW OF SYSTEMS Currently the patient refers no chest pain, no chest discomfort. No palpitation. No fever. PHYSICAL EXAMINATION GENERAL: Alert, fully oriented. VITAL SIGNS: Her blood pressure is 134/95, pulse 55, respiratory rate 18 LUNGS: Ventilated. CARDIOVASCULAR: S1, S2. Regular. No gallop, no murmur. ABDOMEN: Soft. No mass. No bruit. EXTREMITIES: No edema. ELECTROCARDIOGRAM Sinus rhythm. No significant ST and T-wave changes. LABORATORY DATA Hemoglobin is 14.9, white blood cells 8.6. The patient was positive for cannabis. Potassium 4.1, creatinine 0.77. Troponin 1.78. Troponin on August 08 reached 4.53. ASSESSMENT AND RECOMMENDATIONS Mrs. Nichols is currently stable. She refers palpitation since high school. She refers this episode on and off for the past couple of months, began more intense. The heart rate was so high that the troponin increased. Left heart catheterization was negative. I discussed with her the option of electrophysiology study and ablation. The risks, the nature and the benefit of the procedure are clearly stated to her. The risks include pneumothorax, cardiac perforation, stroke and even . She understood and agreed to proceed. The procedure will be performed during hospitalization. MD SUMMER Cook/SSB /6:45 PM /6:35 AM
--- NOTE | 2016-08-11 07:50 | EKG ---
Date Performed: 08/11/2016 Time Performed: 05:56:28 PTAGE: 40 years EKG: Sinus bradycardia Prolonged QT interval Left ventricular hypertrophy Extensive nonspecific ST-T wave changes Abnormal ECG NO SIGNIFICANT CHANGE FROM PRIOR ELECTROCARDIOGRAM. PREVIOUS TRACING : 08/10/2016 22.05 DOCTOR: Slick Bhatti Interpretating Date/Time 08/11/2016 07:48:55
--- NOTE | 2016-08-11 08:00 | MA ---
cc: RONDA GRANADOS M.D. DATE 08/10/2016 PROCEDURE PERFORMED Electrophysiology study, CS cannulation, repeat electrophysiology study on Isuprel infusion, 3-D mapping for catheter placement. INDICATIONS Mrs. Nichols is a 40-year-old female with recurrent episode of tachyarrhythmia who will undergo electrophysiology study. The risks, the nature and the benefit of the procedure are clearly stated to her. The risks include pneumothorax, cardiac perforation, stroke, need for open heart surgery and even . The patient understood and agreed to proceed. PROCEDURE After written informed consent was obtained, the patient was brought to the EP lab where she was prepped and draped in the usual sterile fashion. Conscious sedation was initiated and maintained throughout the procedure by anesthesiologist. Once sedation verified, the right and left inguinal area was anesthetized with 2% Xylocaine. Using modified Seldinger technique, the left femoral vein was cannulated on three occasions and three guidewires were advanced over the wire. Three 5-Singaporean Hemaquets were advanced. Then the right femoral vein was cannulated on two occasions. Two guidewires were advanced over the wire. A 6 and an 8-Sing[place]an Hemaquet were advanced. Then under fluoroscopic guidance through the 5 and 6-Sing[place]an Hemaquet, four 5-[place]an Stephon curved quadripolar electrophysiology catheters were advanced and positioned on the His, upper right atrium, coronary sinus and right ventricular apex. Basic interval was measured. They were within normal limits. At this point, atrial pacing protocol was performed. Atrial pacing protocol consists of incremental atrial pacing as well as program stimulation with one drive train cycle length and up to three extra stimuli delivered. No tachyarrhythmia was induced. Then ventricular pacing protocol was performed. There was VR at baseline. Then Isuprel infusion was initiated. Atrial and ventricular pacing protocol was repeated again. There was VA conduction on Isuprel. Then during atrial pacing protocol, supraventricular tachyarrhythmia of intracardiac characteristics of atrial fibrillation was induced. After a while, the patient converted back into sinus rhythm. Then atrial pacing protocol was repeated again. Atrial fibrillation was induced. No other tachyarrhythmia was induced. At that point, procedure was complete. Isuprel was discontinued. All catheters and Hemaquet were removed. The patient is going to be transferred to the recovery room. No incident report. The patient tolerated procedure. Blood loss minimal. 1. Electrocardiogram: At baseline the patient was in sinus postprocedure electrocardiogram was unchanged. 2. Basic interval: Base cycle length was 1170 milliseconds, AH at 56 and HV at 50 milliseconds. 3. Atrial pacing protocol: Wenckebach of the node was around 400 milliseconds at baseline. On Isuprel, it was around 280 milliseconds. ERP of the node was 600 and 180 at Baseline. On Isuprel, it cannot be reached because the patient went on and off into atrial fibrillation. 4. Ventricular pacing protocol: There was no VA at baseline. There was VA on Isuprel. No tachyarrhythmia was induced. CONCLUSION Positive electrophysiology study for atrial fibrillation. COMMENT AND RECOMMENDATION At this point, my recommendation is to anticoagulate the patient, wait for three more weeks on anticoagulation and bring the patient back for atrial fibrillation ablation. MD SUMMER Cook/LOIS /8:20 PM /7:57 AM
[2016-08-11] MEDS: ATORVASTATIN 40 MG TAB PO SCH (08:14)
[2016-08-11] MEDS: APIXABAN 5 MG TABLET PO SCH (08:15)
[2016-08-11] MEDS: LISINOPRIL 20 MG TAB PO SCH (08:15)
[2016-08-11] MEDS: METOPROLOL TARTRATE 25 MG TAB PO SCH (08:15)
[2016-08-11] MEDS: SODIUM CHLORIDE 0.9% FLUSH 10 ML FLUSH IV FLUSH SCH (08:15)
[2016-08-11] MEDS: ALPRAZolam 0.5 MG TAB PO PRN ×2 (08:17)
[2016-08-11] MEDS ORDERED: PILL SPLITTER OTHER PRN (09:15)
[2016-08-11] MEDS ORDERED: LISI-515 PO (09:18)
[2016-08-11] MEDS ORDERED: APIX5TAB PO (09:18)
[2016-08-11] MEDS ORDERED: METO25TA3 PO (09:18)
--- NOTE | 2016-08-11 09:19 | HHI.DCPOC ---
Discharge Care Plan Diagnosis: (1) elevated troponin I with possible non-ST elevation myocardial infarction (2) Anxiety (3) Chest pain (4) NSTEMI (non-ST elevated myocardial infarction) (5) Bipolar disorder, current episode mixed, mild Goals to Promote Your Health * To prevent worsening of your condition and complications * To maintain your health at the optimal level Directions to Meet Your Goals Take your medications as prescribed Follow your dietary instruction Follow activity as directed Keep your appointments as scheduled Take your immunizations and boosters as scheduled If your symptoms worsen call your PCP, if no PCP go to Urgent Care Center or Emergency Room Smoking is Dangerous to Your Health. Avoid second hand smoke Call the 24-hour hour crisis hotline for domestic abuse at Jerzy Richard MD Aug 11, 2016 09:19
[2016-08-11] MEDS ORDERED: LISINOPRIL 10 MG TAB PO ONE (10:00)
--- NOTE | 2016-08-11 11:42 | PD.ONC.PN ---
Subjective Subjective Remarks Afebrile overnight. Patient resting comfortably in nad. "I'm waiting for my blood pressure to go down so that I can go home." Objective Data Date Time Temp Pulse Resp B/P Pulse Ox O2 Delivery O2 Flow Rate FiO2 08/11/16 11:15 97.8 58 18 150/96 100 08/11/16 11:15 52 08/11/16 10:35 55 08/11/16 09:19 53 08/11/16 08:26 59 08/11/16 07:55 97.6 63 20 164/103 96 08/11/16 07:45 55 08/11/16 07:45 96 Room Air 08/11/16 06:00 60 08/11/16 05:00 58 08/11/16 04:00 57 08/11/16 04:00 98.7 52 20 151/91 98 08/11/16 03:00 58 08/11/16 02:00 54 08/11/16 01:00 52 08/11/16 00:00 54 08/11/16 00:00 97.4 61 20 144/94 97 08/10/16 23:00 60 08/10/16 22:45 57 144/94 100 08/10/16 22:30 56 151/100 98 08/10/16 22:00 54 08/10/16 22:00 55 137/85 99 08/10/16 21:45 56 139/89 98 08/10/16 21:30 57 149/90 98 08/10/16 21:15 51 147/92 98 08/10/16 21:15 56 143/94 96 08/10/16 21:00 57 146/88 95 08/10/16 21:00 54 08/10/16 20:45 60 153/97 98 08/10/16 20:40 98.0 64 18 146/98 99 08/10/16 20:40 99 Room Air 08/10/16 20:40 63 08/10/16 18:06 53 08/10/16 17:43 58 08/10/16 16:42 48 08/10/16 15:41 55 08/10/16 15:41 98.3 55 18 134/95 99 08/10/16 14:32 60 08/10/16 13:07 54 08/10/16 12:03 60 08/11/16 08/11/16 08/11/16 07:00 15:00 23:00 Intake Total 460 ml Output Total 700 ml Balance -240 ml Result Diagram: 08/11/16 0459 08/10/16 1546 Laboratory Results Laboratory Tests Test 08/10/16 08/11/16 15:46 04:59 White Blood Count 8.6 TH/MM3 7.5 TH/MM3 Red Blood Count 4.90 MIL/MM3 4.51 MIL/MM3 Hemoglobin 14.9 GM/DL 14.1 GM/DL Hematocrit 45.6 % 41.3 % Mean Corpuscular Volume 93.1 FL 91.7 FL Mean Corpuscular Hemoglobin 30.4 PG 31.2 PG Mean Corpuscular Hemoglobin 32.7 % 34.0 % Concent Red Cell Distribution Width 13.7 % 13.6 % Platelet Count 187 TH/MM3 182 TH/MM3 Mean Platelet Volume 9.8 FL 9.7 FL Neutrophils (%) (Auto) 57.3 % Lymphocytes (%) (Auto) 32.1 % Monocytes (%) (Auto) 9.3 % Eosinophils (%) (Auto) 1.0 % Basophils (%) (Auto) 0.3 % Neutrophils # (Auto) 4.9 TH/MM3 Lymphocytes # (Auto) 2.8 TH/MM3 Monocytes # (Auto) 0.8 TH/MM3 Eosinophils # (Auto) 0.1 TH/MM3 Basophils # (Auto) 0.0 TH/MM3 CBC Comment DIFF FINAL Differential Comment Sodium Level 141 MEQ/L Potassium Level 4.1 MEQ/L Chloride Level 108 MEQ/L Carbon Dioxide Level 25.4 MEQ/L Anion Gap 8 MEQ/L Blood Urea Nitrogen 7 MG/DL Creatinine 0.77 MG/DL Estimat Glomerular Filtration 83 ML/MIN Rate Random Glucose 87 MG/DL Calcium Level 9.0 MG/DL Total Bilirubin 0.5 MG/DL Aspartate Amino Transf 19 U/L (AST/SGOT) Alanine Aminotransferase 19 U/L (ALT/SGPT) Alkaline Phosphatase 63 U/L Total Protein 7.0 GM/DL Albumin 3.4 GM/DL Human Chorionic Gonadotropin, LESS THAN 1 Quant MIU/ML Administered Medications Medications (Trade) Dose Ordered Sig/Vannessa Route PRN Reason Start Time Stop Time Status Last Admin Dose Admin Heparin Sodium (Porcine) 2500 units 2,500 units UNSCH PRN IV APTT 25 TO 39 08/08/16 17:00 08/08/16 21:39 Heparin Sodium/ Dextrose (Heparin-D5W Inj) 250 ml @ 0 mls/hr TITRATE IV 08/08/16 11:00 08/08/16 12:34 Ondansetron HCl (Zofran Inj) 4 mg Q6H PRN IV NAUSEA OR VOMITING 08/08/16 11:00 08/08/16 15:40 Acetaminophen (Tylenol) 650 mg Q4H PRN PO Temp>101F, Headache 08/08/16 11:00 08/08/16 21:48 Sodium Chloride (NS Flush) 2 ml BID IV FLUSH 08/08/16 21:00 08/11/16 08:15 Atorvastatin Calcium (Lipitor) 40 mg DAILY PO 08/09/16 09:00 08/11/16 08:14 Metoprolol Tartrate (Lopressor) 25 mg Q12HR PO 08/08/16 21:00 08/11/16 08:15 Alprazolam (Xanax) 0.5 mg Q8H PRN PO anxiety 08/08/16 17:30 08/11/16 08:17 Oxycodone/ Acetaminophen (Percocet 5-325 Mg) 1 tab Q4H PRN PO PAIN SCALE 1 TO 4 08/10/16 20:15 08/11/16 05:08 Apixaban (Eliquis) 5 mg BID PO 08/10/16 21:00 08/11/16 08:15 Objective Remarks GENERAL: Young woman, lying in bed. SKIN: Warm and dry. HEAD: Normocephalic. EYES: No scleral icterus. No injection or drainage. NECK: Supple, trachea midline. CARDIOVASCULAR: +S1/S2 RESPIRATORY: Breath sounds equal bilaterally. No accessory muscle use. GASTROINTESTINAL: Abdomen soft, non-tender, nondistended. EXTREMITIES: No cyanosis, or edema. MUSCULOSKELETAL: Adequate muscle tone. NEUROLOGICAL: No obvious focal deficit. Awake, alert, and oriented x3. Assessment/Plan Problem List: (1) Erythrocytosis Status: Acute Plan: --mild erythrocytosis is likely due to dehydration and hemoconcentration as the patient has not been drinking much fluid lately. --Other differential includes secondary erythrocytosis due to tobacco abuse. --hgb now normal --doubt that she has primary chronic myeloproliferative disorder. --Erythropoietin level and JAK2 mutation tests pending. Assessment 40y/o female admitted with chest pain. Hematology consulted for erythrocytosis. h/o. Hypertension. Asthma. Anxiety. Tobacco abuse. Bipolar disorder. Non-ST elevation MO. Plan 1. monitor CBC, hemoglobin now normal 2. await EPO and Jak2 tests Attending Statement The exam, history, and the medical decision-making described in the above note were completed with the assistance of the mid-level provider. I reviewed and agree with the findings presented. I attest that I had a [id number] encounter with the patient on the same day, and personally performed and documented my assessment and findings in the medical record. Hgb remains normal. Doubt she has CMPD. I told her to f/u with her PCP and monitor CBC. Uyen Liriano Aug 11, 2016 11:42 Mark Salgado MD Aug 11, 2016 15:03
--- NOTE | 2016-08-11 14:08 | HHI.PR ---
Subjective Remarks Feeling ok Objective Vital Signs Date Time Temp Pulse Resp B/P Pulse Ox O2 Delivery O2 Flow Rate FiO2 08/11/16 13:00 52 08/11/16 12:13 54 08/11/16 11:15 97.8 58 18 150/96 100 08/11/16 11:15 52 08/11/16 10:35 55 08/11/16 09:19 53 08/11/16 08:26 59 08/11/16 07:55 97.6 63 20 164/103 96 08/11/16 07:45 55 08/11/16 07:45 96 Room Air 08/11/16 06:00 60 08/11/16 05:00 58 08/11/16 04:00 57 08/11/16 04:00 98.7 52 20 151/91 98 08/11/16 03:00 58 08/11/16 02:00 54 08/11/16 01:00 52 08/11/16 00:00 54 08/11/16 00:00 97.4 61 20 144/94 97 08/10/16 23:00 60 08/10/16 22:45 57 144/94 100 08/10/16 22:30 56 151/100 98 08/10/16 22:00 54 08/10/16 22:00 55 137/85 99 08/10/16 21:45 56 139/89 98 08/10/16 21:30 57 149/90 98 08/10/16 21:15 51 147/92 98 08/10/16 21:15 56 143/94 96 08/10/16 21:00 57 146/88 95 08/10/16 21:00 54 08/10/16 20:45 60 153/97 98 08/10/16 20:40 98.0 64 18 146/98 99 08/10/16 20:40 99 Room Air 08/10/16 20:40 63 08/10/16 18:06 53 08/10/16 17:43 58 08/10/16 16:42 48 08/10/16 15:41 55 08/10/16 15:41 98.3 55 18 134/95 99 08/10/16 14:32 60 I/O 08/10/16 08/10/16 08/10/16 08/11/16 08/11/16 08/11/16 07:00 15:00 23:00 07:00 15:00 23:00 Intake Total 480 ml 240 ml 460 ml Output Total 700 ml 700 ml Balance -220 ml 240 ml -240 ml Intake Oral 480 ml 240 ml 460 ml Output Urine Total 700 ml 700 ml # Voids 4 # Bowel Movements 0 0 Result Diagram: 08/11/16 0459 08/10/16 1546 Imaging Alert, fully oriented, ambulating Lungs: ventilated Heart: S1, S2 regular, no gallop abdomen: soft, no mass Ext: no edema Last Impressions Chest X-Ray 08/08/16 0858 Signed Impressions: Service Date/Time: Wednesday, August 08, 2016 09:09 - CONCLUSION: No acute disease. Will Vogel MD FACR Current Medications Medications (Trade) Dose Ordered Sig/Vannessa Route Start Time Stop Time Status Last Admin (NS Flush) 2 ml UNSCH PRN IVF 08/08/16 09:00 (Heparin Inj) 5,000 units UNSCH PRN IV 08/08/16 17:00 Heparin Sodium (Porcine) 2500 units 2,500 units UNSCH PRN IV 08/08/16 17:00 08/08/16 21:39 (Heparin-D5W Inj) 250 ml @ 0 mls/hr TITRATE IV 08/08/16 11:00 08/08/16 12:34 (Zofran Inj) 4 mg Q6H PRN IV 08/08/16 11:00 08/08/16 15:40 (Tylenol) 650 mg Q4H PRN PO 08/08/16 11:00 08/08/16 21:48 (NS Flush) 2 ml BID IV FLUSH 08/08/16 21:00 08/11/16 08:15 (Lipitor) 40 mg DAILY PO 08/09/16 09:00 08/11/16 08:14 (Lopressor) 25 mg Q12HR PO 08/08/16 21:00 08/11/16 08:15 (Morphine Inj) 2 mg Q3H PRN IV PUSH 08/08/16 17:30 (Xanax) 0.5 mg Q8H PRN PO 08/08/16 17:30 08/11/16 08:17 (Percocet 5-325 Mg) 1 tab Q4H PRN PO 08/10/16 20:15 08/11/16 05:08 (Percocet 5-325 Mg) 2 tab Q4H PRN PO 08/10/16 20:15 (Ativan Inj) 0.5 mg UNSCH PRN IV 08/10/16 20:15 08/11/16 20:14 Atropine Sulfate 0.5 mg 0.5 mg UNSCH PRN IV 08/10/16 20:15 (NS 250 ml Inj) 250 ml @ 500 mls/hr ONCE PRN IV 08/10/16 20:15 08/11/16 20:14 (Reglan Inj) 10 mg Q4H PRN IV 08/10/16 20:15 (Zofran Inj) 4 mg Q4H PRN IV 08/10/16 20:15 (Xylocaine 1% Inj (50 ml)) 10 ml UNSCH PRN INFIL 08/10/16 20:15 08/11/16 20:14 (Eliquis) 5 mg BID PO 08/10/16 21:00 08/11/16 08:15 (Prinivil) 30 mg DAILY PO 08/12/16 09:00 (Pill Splitter) 1 ea UNSCH PRN OTHER 08/11/16 09:15 Assessment and Plan Problem List: (1) Atrial fibrillation Status: Acute Plan: EPS performed yesterday. Atrial fibrillation induced in multiple occasions El;iquis initiated Can be DH. Ablation in 3 weeks case discussed extensively with patient earlier today (2) Chest pain Status: Acute Plan: No chest pain reported Arya Moody MD Aug 11, 2016 14:08
[2016-08-11] MEDS ORDERED: ATOR40TA16 PO (14:28)
--- NOTE | 2016-08-11 14:34 | HHI.DS ---
Discharge Summary Admission Date Aug 08, 2016 at 11:01 Discharge Date: Aug 11, 2016 Admitting Diagnosis NSTEMI (1) NSTEMI (non-ST elevated myocardial infarction) ICD Code: I21.4 Diagnosis: Principal (2) Chest pain ICD Code: R07.9 Diagnosis: Principal (3) Anxiety ICD Code: F41.9 Diagnosis: Principal (4) Atrial fibrillation ICD Code: I48.91 Diagnosis: Principal (5) Erythrocytosis ICD Code: D75.1 Diagnosis: Principal (6) Bipolar disorder, current episode mixed, mild ICD Code: F31.61 Diagnosis: Principal Procedures EPS performed 08/10 - induced atrial fibrillation Brief History - From Admission Written by Renate Uribe, acting as scribe for Dr. Rangel on 08/08/16 at 17: 40. 40-year-old female with history of hypertension, asthma, tobacco use, anxiety, depression, bipolar disorder, presents with acute onset of chest pain this morning 08/08/16. The patient reports she woke up around 7:30am with severe palpitations, felt her heart racing, then developed chest pain located substernally with radiation to the mid-back, described as severe pressure, associated with nausea but no shortness of breath or dizziness. She took 2 baby aspirin and came to the ER. Symptoms lasted about an hour, resolved after her arrival to the ER. Denies noticing any aggravating or alleviating factors. Denies any recent travel or leg swelling. The patient has a history of NSTEMI in 2013 however cardiac catheterization done by Dr. Vail showed normal coronary arteries at the time, no obvious culprit for the NSTEMI. She continues to smoke tobacco, however is motivated to quit. Both of her parents have a history of heart disease, mother had stent at age 65 and father with CABG in his 50s. The patient admits to noncompliance with blood pressure medications, however does take a baby aspirin daily. The patient reports history of severe anxiety and has palpitations and chest pains almost every day but nothing like her symptoms today. She reports recently increased anxiety and stress level since she has returned to work. She states she only works 5 days a week, 6 hour shifts, however it has been hard leaving her children at home during summer break. The patient is interested in talking to a psychiatrist about possibly starting medication for her severe anxiety. CBC/BMP: 08/11/16 0459 08/10/16 1546 Significant Findings Laboratory Tests Test 08/08/16 08/08/16 08/09/16 08/09/16 14:52 20:47 04:10 14:37 Troponin I 4.53 NG/ML 2.86 NG/ML 1.78 NG/ML (0.02-0.05) (0.02-0.05) (0.02-0.05) Activated Partial 32.9 SEC 52.2 SEC Thromboplast Time (24.3-30.1) (24.3-30.1) Test 08/10/16 15:46 Monocytes (%) (Auto) 9.3 % (0.0-8.0) Chloride Level 108 MEQ/L (98-107) Estimat Glomerular Filtration 83 ML/MIN (>89) Rate Imaging Last Impressions Chest X-Ray 08/08/16 0844 Signed Impressions: Service Date/Time: Wednesday, August 08, 2016 09:09 - CONCLUSION: No acute disease. Will Vogel MD FACR PE at Discharge GENERAL: Well-nourished, well-developed middle aged female patient in [facility]. SKIN: Warm and dry. No rash. HEAD: Normocephalic. Atraumatic. EYES: Pupils equal and round. No scleral icterus. No injection or drainage. ENT: No nasal bleeding or discharge. Mucous membranes pink and moist. NECK: Supple. Trachea midline. Thyroid exam unremarkable. CARDIOVASCULAR: Regular rate and rhythm. S1, S2 noted. No murmur appreciated. RESPIRATORY: No accessory muscle use. Clear to auscultation. Breath sounds equal bilaterally. GASTROINTESTINAL: Abdomen soft, non-tender, nondistended. Normoactive bowel sounds x4. MUSCULOSKELETAL: No obvious deformities. Extremities without clubbing, cyanosis , or edema. NEUROLOGICAL: Awake and alert. No obvious cranial nerve deficits. Motor grossly within normal limits. Normal speech. PSYCHIATRIC: Tearful, anxious; insight and judgment normal. Pt update on day of discharge The patient denies chest pain, shortness of breath, palpitations. Anxiety is very controlled. Wants to go home. The patient underwent cardiac catheterization which showed nonobstructive CAD. The patient underwent EPS study were insufflation was induced. 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 Hospital Course 40-year-old female with history of hypertension, asthma, tobacco use, anxiety, bipolar disorder, presents with acute onset of chest pain today 08/08. NSTEMI: Troponins elevated at 1.39 --> 4.53. EKG reviewed, shows NSR, no acute ST changes to suggest ischemia. Pt has hx of NSTEMI 2013 with cardiac catheterization by Dr. Vail showed normal coronary arteries. -Monitored and trended serial cardiac enzymes and EKGs. Trop 1.39 - 4.53 - 2.86 -Placed on IV heparin drip -Continue aspirin, statin, BB, nitro paste -IV morphine prn chest pain -Monitor on telemetry -Check lipid panel and HgbA1c --> 5.7, advised on lifestyle modification including diet and exercise. -Cardiology consulted, Paqtient seen by Dr ROJAS who recommended cardiac catheterization. -Lipid profile showed total cholesterol is 119, LDL cholesterol 97 and HDL cholesterol 47.8, continue statin. -08/10 H&E status post cardiac catheterization on 08/09 which showed nonobstructive CAD. Cardiology recommended EPS study. Anxiety: acute on chronic. S/p IV ativan in the ED. Patient still very tearful/ anxious on exam. -continue Xanax 0.5mg po q8h prn anxiety -consult psychiatry. The patient was evaluated by Dr. Sharpe who recommended continuation of Xanax while the patient is in hospital in the hospital and to follow-up with [facility]. - Strong recommendation to abstain from marijuana substances containing caffeine. - Dr. Sharpe determined that the patient has bipolar disorder. Erythrocytosis.: patient has had elevated hemoglobin on multiple visits. Hematology was consulted for evaluation of secondary erythrocytosis versus polycythemia vera. -EPO and JAK2 were ordered and are still pending. -Hematology consulted. Appreciate recommendations. Erythrocytosis was determined to be secondary to dehydration and hemoconcentration. Repeat hemoglobin after IV fluids and hydration was normal. Hypertension: Upon admission the patient denied being on antihypertensive medications. -The patient was started on metoprolol 25 mg by mouth twice a day. - The patient had a very uncontrolled pressure despite being on Toprol, so the patient was started on lisinopril 20 mg by mouth daily. BP still elevated, the dose of lisinopril was increased to 30 minutes by mouth daily. - The patient was advised to follow-up with cardiology to titrate antihypertensive medications. Tobacco Use: chronic, patient motivated to quit -counseled on cessation -avoid nicotine patch for now due to vasoconstriction DVT Prophylaxis: Patient initially underwent ablation with heparin drip which was later discontinued and the patient started on Eliquis. Pt Condition on Discharge: Stable Discharge Disposition: Discharge Home Discharge Time: > 30 minutes Discharge Instructions DIET: Follow Instructions for: Heart Healthy Diet, Low Sodium Diet Activities you can perform: Regular-No Restrictions Activities to Avoid: Prolonged Standing, Strenuous Activity Follow up Referrals: Cardiology - 1 Week with Arya Moody MD PCP Follow-up New Medications: Apixaban (Eliquis) 5 Mg Tab 5 MG PO BID Blood Clot Prevention #62 TAB Atorvastatin (Atorvastatin) 40 Mg Tab 40 MG PO DAILY Cholesterol Management #31 TAB Lisinopril (Lisinopril) 20 Mg Tab 30 MG PO DAILY Blood Pressure Management #31 TAB Metoprolol Tartrate (Metoprolol Tartrate) 25 Mg Tab 25 MG PO Q12HR afib #62 TAB Continued Medications: Aspirin (Aspirin) 81 Mg Chew 81 MG CHEW DAILY Ref 0 TAB Jerzy Richard MD Aug 11, 2016 14:33
[2016-08-11] MEDS ORDERED: ALPR.5 PO (16:18)
[2016-08-12] MEDS ORDERED: LISINOPRIL 20 MG TAB PO SCH (09:00)
== END 2016-08-11 16:53 | disposition home or self-care (01) | DRG 274 ==
LOC: PHED 08:46 → PHEDA 11:01 → HCIS 15:23
PROVIDERS: ADMIT Hospitalist; ATTEND Hospitalist
PROC: 4A023N7 Measurement of Cardiac Sampling and Pressure, Left Heart, Percutaneous Approach (ICD-10-PCS; 2016-08-09)
PROC: B2111ZZ Fluoroscopy of Multiple Coronary Arteries using Low Osmolar Contrast (ICD-10-PCS; 2016-08-09)
PROC: B2151ZZ Fluoroscopy of Left Heart using Low Osmolar Contrast (ICD-10-PCS; 2016-08-09)
PROC: 4A0234Z Measurement of Cardiac Electrical Activity, Percutaneous Approach (ICD-10-PCS; 2016-08-10)
PROC: 4A023FZ Measurement of Cardiac Rhythm, Percutaneous Approach (ICD-10-PCS; principal; 2016-08-10 18:00)
DX: I21.4 Non-ST elevation (NSTEMI) myocardial infarction (principal); D75.1 Secondary polycythemia; I47.1 Supraventricular tachycardia; E86.0 Dehydration; I10 Essential (primary) hypertension; I48.91 Unspecified atrial fibrillation; F31.61 Bipolar disorder, current episode mixed, mild; J45.909 Unspecified asthma, uncomplicated; I25.2 Old myocardial infarction; M19.90 Unspecified osteoarthritis, unspecified site; G47.30 Sleep apnea, unspecified; I25.10 Atherosclerotic heart disease of native coronary artery without angina pectoris; R00.1 Bradycardia, unspecified; F17.210 Nicotine dependence, cigarettes, uncomplicated; F12.90 Cannabis use, unspecified, uncomplicated; F41.9 Anxiety disorder, unspecified; Z82.49 Family history of ischemic heart disease and other diseases of the circulatory system; Z91.14 Patient's other noncompliance with medication regimen
CPT/HCPCS: 71010; 80053; 80061; 80307; 82550; 82668; 83036; 83735; 84443; 84484; 84702; 85025; 85027; 85610; 85730; 93005; 93458; 93623; 96374; 96375; C1730; C1732; C1769; C1893; J1644; J2060; J2250; J2405; J3010; J7050; Q9967

== ENCOUNTER 2017-04-02 16:28 | Emergency (ER) | payer MEDICAID ==
[~2017-04-02] VITALS: Ht 160 cm; Wt 70.8 kg
[~2017-04-02 16:28] MED LIST changes: +ALPR.5 PO; +APIX5TAB PO; +ASPI-516 CHEW; -ASPI81TA82 PO; +ATOR40TA16 PO; -IBUP-232 PO; +LISI-515 PO; +METO25TA3 PO; -METO50TA PO
[2017-04-02] MEDS ORDERED: VIST25CA PO (16:39)
[2017-04-02 16:40] VITALS: BP 144/73; PULSE 82; RESP 18; TEMP 98.3; O2SAT 95
[2017-04-02 17:25] VITALS: O2SAT 98
[2017-04-02 17:40] LABS: AUTOMATED NEUTROPHIL # 4.5 TH/MM3 (1.8-7.7); BASOPHIL % 0.6 % (0.0-2.0); EOSINOPHIL % 0.5 % (0.0-4.0); HEMATOCRIT 46.6 % (35.0-46.0); HEMOGLOBIN 15.6 GM/DL (11.6-15.3); LYMPH % 28.3 % (9.0-44.0); LYMPHOCYTE # 2.1 TH/MM3 (1.0-4.8); MEAN CELL VOLUME 91.4 FL (80.0-100.0); MEAN CORPUSCULAR HEMOGLOBIN 30.6 PG (27.0-34.0); MEAN CORPUSCULAR HGB CONC 33.5 % (32.0-36.0); MEAN PLATELET VOLUME 9.8 FL (7.0-11.0); MONO % 11.4 % (0.0-8.0); MONOCYTE # 0.8 TH/MM3 (0-0.9); NEUT % 59.2 % (16.0-70.0); PLATELET COUNT 192 TH/MM3 (150-450); RED CELL DISTRIBUTION WIDTH 12.4 % (11.6-17.2); WHITE BLOOD COUNT 7.4 TH/MM3 (4.0-11.0)
[2017-04-02 17:45] VITALS: BP 109/78; PULSE 76; RESP 16; O2SAT 98
[2017-04-02] MEDS ORDERED: LORazepam 2 MG/ML VIAL IV PUSH ONE (17:45)
[2017-04-02] MEDS ORDERED: ONDANSETRON HCL 4 MG/2 ML VIAL IV PUSH ONE (17:45)
--- NOTE | 2017-04-02 17:48 | PD ---
HPI Chief Complaint: Chest Pain Time Seen by Provider: 17:20 Travel History International Travel<30 days: No Contact w/Intl Traveler<30days: No Traveled to known affect area: No History of Present Illness HPI 41-year-old female complains of headache, lightheadedness, anxiety, dizziness, chest pain. Patient states that she has intermittent headache for the past 2 days. Patient states that headache is bitemporal aching headache. Patient denies any visual change. Patient denies any photophobia. Patient denies any neck pain. Patient states that she has nausea but no vomiting. Patient denies any coughing congestion fever chills. Patient states that she started having substernal aching pain sharp pain an hour prior to arrival. Patient denies any pain radiation. Patient denies palpitation diaphoresis. Patient denies abdominal pain. Patient states that she has nausea but no vomiting or diarrhea. Patient denies any dysuria or frequency. Patient denies any back pain. Patient has history of NSTEMI 2 in the past. Patient had cardiac catheter Done twice which showed normal coronary arteries. Patient also has history of A. fib status post ablation procedure. Patient is taking aspirin, statin, beta brandi, and Eliquis. PFSH Past Medical History Hx Anticoagulant Therapy: No Arthritis: Yes Asthma: Yes Atrial Fibrillation: Yes Autoimmune Disease: No Blood Disorders: No Bipolar Disorder: Yes Anxiety: Yes Depression: No Heart Rhythm Problems: No Cancer: No Cardiovascular Problems: Yes ([place]/HYPERTENSION) High Cholesterol: Yes Chemotherapy: No Chest Pain: Yes Congestive Heart Failure: No COPD: No Cerebrovascular Accident: No Diabetes: No Diminished Hearing: No Endocrine: No GERD: No Genitourinary: No Hiatal Hernia: No Hypertension: Yes Immune Disorder: No Kidney Stones: No Musculoskeletal: No Neurologic: No Psychiatric: Yes Reproductive: Yes (D&C) Respiratory: Yes Immunizations Current: Yes Migraines: No Myocardial Infarction: Yes Radiation Therapy: No Renal Failure: No Seizures: No Sickle Cell Disease: No Sleep Apnea: Yes Thyroid Disease: No Ulcer: No Tetanus Vaccination: > 5 Years Influenza Vaccination: No ?: Not LMP: Now : 4 Para: 2 Miscarriage: 2 Dilation and Curettage (D&C): Yes (1997) Tubal Ligation: Yes Past Surgical History Abdominal Surgery: No AICD: No Arteriovenous Shunt: No Cardiac Surgery: Yes (CATH) Section: Yes Ear Surgery: No Endocrine Surgery: No Eye Surgery: No Genitourinary Surgery: No Gynecologic Surgery: Yes (D&C) Hysterectomy: No Insulin Pump: No Joint Replacement: No Oral Surgery: No Pacemaker: No Thoracic Surgery: No Other Surgery: Yes (d&c, ) Social History Alcohol Use: No Tobacco Use: Yes (1 PPD) Substance Use: Yes (marijuana) Allergies-Medications (Allergen,Severity, Reaction): Coded Allergies: diphenhydramine (Verified Allergy, Severe, Hives, 04/02/17) Reported Meds & Prescriptions Reported Meds & Active Scripts Active Atorvastatin (Atorvastatin Calcium) 40 Mg Tab 40 Mg PO DAILY Metoprolol Tartrate 25 Mg Tab 25 Mg PO Q12HR Lisinopril 20 Mg Tab 30 Mg PO DAILY Eliquis (Apixaban) 5 Mg Tab 5 Mg PO BID Reported Vistaril (Hydroxyzine Pamoate) 25 Mg Cap 25 Mg PO DAILY Aspirin 81 Mg Chew 81 Mg CHEW DAILY Review of Systems General / Constitutional: No: Fever Eyes: No: Visual changes HENT: Positive: Headaches, Lightheadedness Cardiovascular: Positive: Chest Pain or Discomfort Respiratory: No: Shortness of Breath Gastrointestinal: No: Abdominal Pain Genitourinary: No: Dysuria Musculoskeletal: No: Pain Skin: No Rash Neurologic: No: Weakness Psychiatric: No: Depression Endocrine: No: Polydipsia Hematologic/Lymphatic: No: Easy Bruising Physical Exam Narrative GENERAL: Well-nourished, well-developed patient. SKIN: Focused skin assessment warm/dry. HEAD: Normocephalic. EYES: No scleral icterus. No injection or drainage. Pupils 2 mm equal reactive. NECK: Supple, trachea midline. No JVD or lymphadenopathy. CARDIOVASCULAR: Regular rate and rhythm without murmurs, gallops, or rubs. RESPIRATORY: Breath sounds equal bilaterally. No accessory muscle use. GASTROINTESTINAL: Abdomen soft, non-tender, nondistended. MUSCULOSKELETAL: No cyanosis, or edema. BACK: Nontender without obvious deformity. No CVA tenderness. Neurologic exam normal. Data Data Last Documented VS Vital Signs Date Time Temp Pulse Resp B/P (MAP) Pulse Ox O2 Delivery O2 Flow Rate FiO2 04/02/17 17:45 76 16 109/78 (88) 98 Room Air 04/02/17 16:40 98.3 Orders Orders Electrocardiogram (04/02/17 17:18) Complete Blood Count With Diff (04/02/17 17:18) Basic Metabolic Panel (Bmp) (04/02/17 17:18) Ckmb (Isoenzyme) Profile (04/02/17 17:18) Troponin I (04/02/17 17:18) Chest, Single Ap (04/02/17 17:18) Iv Access Insert/Monitor (04/02/17 17:18) Ecg Monitoring (04/02/17 17:18) Oxygen Administration (04/02/17 17:18) Oximetry (04/02/17 17:18) Ondansetron Inj (Zofran Inj) (04/02/17 17:45) Lorazepam Inj (Ativan Inj) (04/02/17 17:45) Labs Laboratory Tests Test 04/02/17 17:20 White Blood Count 7.4 TH/MM3 Red Blood Count 5.10 MIL/MM3 Hemoglobin 15.6 GM/DL Hematocrit 46.6 % Mean Corpuscular Volume 91.4 FL Mean Corpuscular Hemoglobin 30.6 PG Mean Corpuscular Hemoglobin Concent 33.5 % Red Cell Distribution Width 12.4 % Platelet Count 192 TH/MM3 Mean Platelet Volume 9.8 FL Neutrophils (%) (Auto) 59.2 % Lymphocytes (%) (Auto) 28.3 % Monocytes (%) (Auto) 11.4 % Eosinophils (%) (Auto) 0.5 % Basophils (%) (Auto) 0.6 % Neutrophils # (Auto) 4.5 TH/MM3 Lymphocytes # (Auto) 2.1 TH/MM3 Monocytes # (Auto) 0.8 TH/MM3 Eosinophils # (Auto) 0.0 TH/MM3 Basophils # (Auto) 0.0 TH/MM3 CBC Comment DIFF FINAL Differential Comment Blood Urea Nitrogen 11 MG/DL Creatinine 0.81 MG/DL Random Glucose 108 MG/DL Calcium Level 9.1 MG/DL Sodium Level 135 MEQ/L Potassium Level 3.1 MEQ/L Chloride Level 101 MEQ/L Carbon Dioxide Level 25.9 MEQ/L Anion Gap 8 MEQ/L Estimat Glomerular Filtration Rate 78 ML/MIN Total Creatine Kinase 77 U/L Troponin I LESS THAN 0.02 NG/ML MDM Medical Decision Making Medical Screen Exam Complete: Yes Emergency Medical Condition: Yes Interpretation(s) EKG shows sinus rhythm nonspecific ST-T wave change. 1855 PM. Last Impressions Chest X-Ray 04/02/17 5648 Signed Impressions: Service Date/Time: Sunday, April 02, 2017 17:34 - CONCLUSION: No acute disease. Arnaldo Bourne Jr., MD 1849 5 PM. CBC within normal limit. Sodium 135. Potassium 3.1. Glucose 108. Troponin normal. Differential Diagnosis Differential diagnosis including angina, [place], PE, pneumothorax, anxiety. Narrative Course 51-year-old female with headache, dizziness, chest pain. History of NSTEMI 2 in the past. History of anxiety. Ativan 0.5 mg IV given. Zofran 4 mg IV. Repeat second set of blood test at 20:20. KCL 40 mEq by mouth given. Diagnosis Primary Impression: Chest pain Qualified Codes: R07.9 - Chest pain, unspecified Additional Impression: Hypokalemia Malvin Bah MD Apr 02, 2017 17:48
--- NOTE | 2017-04-02 17:50 | RADRPT ---
EXAM DATE/TIME: 04/02/2017 17:34 [facility] COMPARISON: CHEST SINGLE AP, August 08, 2016, 9:09. INDICATIONS : Chest pain. MEDICAL HISTORY : Hypertension. SURGICAL HISTORY : Tubal ligation. section ENCOUNTER: Initial ACUITY: 1 day PAIN SCORE: 8/10 LOCATION: Bilateral chest FINDINGS: A single view of the chest demonstrates the lungs to be symmetrically aerated without evidence of mas s, infiltrate or effusion. The cardiomediastinal contours are unremarkable. Osseous structures are intact. CONCLUSION: No acute disease. Arnaldo Bourne Jr., MD on April 02, 2017 at 17:40 Board Certified Radiologist. This report was verified electronically.
[2017-04-02 17:57] LABS: CHLORIDE 101 MEQ/L (98-107); SODIUM (NA) 135 MEQ/L (136-145)
[2017-04-02 17:59] LABS: BICARBONATE 25.9 MEQ/L (21.0-32.0); CALCIUM 9.1 MG/DL (8.5-10.1); GLUCOSE,RANDOM 108 MG/DL (74-106)
[2017-04-02 18:00] LABS: BLOOD UREA NITROGEN 11 MG/DL (7-18)
[2017-04-02 18:03] LABS: CREATININE 0.81 MG/DL (0.50-1.00); GLOMERULAR FILTRATION RATE 78 ML/MIN (>89)
[2017-04-02 18:07] LABS: TROPONIN I LESS THAN 0.02 NG/ML (0.02-0.05)
[2017-04-02] MEDS ORDERED: POTASSIUM CHLORIDE 20 MEQ CONTROLLED RELEASE TAB PO ONE (19:00)
[2017-04-02 19:25] VITALS: BP 134/83; PULSE 74; RESP 20; O2SAT 98
[2017-04-02 20:06] VITALS: BP 117/69; PULSE 76; RESP 20; O2SAT 98
--- NOTE | 2017-04-02 21:22 | PD ---
Physical Exam Narrative Patient signed out to me by Dr. Bah. Please see his documentation for complete details. Briefly, patient is a 41 year old female who comes in complaining of anxiety and chest pain. She has been here twice before and had an elevated troponin, both times having a negative cath performed. She says today she got very anxious, and she feels this caused her to have some chest pain. She says she was feeling a little lightheaded today, but other heck has been feeling ok. She currently has no symptoms. She denies current chest pain or SOB. Data Data Last Documented VS Vital Signs Date Time Temp Pulse Resp B/P (MAP) Pulse Ox O2 Delivery O2 Flow Rate FiO2 04/02/17 21:37 78 18 118/70 (86) 99 04/02/17 17:45 Room Air 04/02/17 16:40 98.3 Orders Orders Electrocardiogram (04/02/17 17:18) Complete Blood Count With Diff (04/02/17 17:18) Basic Metabolic Panel (Bmp) (04/02/17 17:18) Ckmb (Isoenzyme) Profile (04/02/17 17:18) Troponin I (04/02/17 17:18) Chest, Single Ap (04/02/17 17:18) Iv Access Insert/Monitor (04/02/17 17:18) Ecg Monitoring (04/02/17 17:18) Oxygen Administration (04/02/17 17:18) Oximetry (04/02/17 17:18) Ondansetron Inj (Zofran Inj) (04/02/17 17:45) Lorazepam Inj (Ativan Inj) (04/02/17 17:45) Potassium Chloride (Kcl) (04/02/17 19:00) Troponin I (04/02/17 20:16) Ed Discharge Order (04/02/17 21:22) Labs Laboratory Tests Test 04/02/17 17:20 04/02/17 20:17 White Blood Count 7.4 TH/MM3 Red Blood Count 5.10 MIL/MM3 Hemoglobin 15.6 GM/DL Hematocrit 46.6 % Mean Corpuscular Volume 91.4 FL Mean Corpuscular Hemoglobin 30.6 PG Mean Corpuscular Hemoglobin Concent 33.5 % Red Cell Distribution Width 12.4 % Platelet Count 192 TH/MM3 Mean Platelet Volume 9.8 FL Neutrophils (%) (Auto) 59.2 % Lymphocytes (%) (Auto) 28.3 % Monocytes (%) (Auto) 11.4 % Eosinophils (%) (Auto) 0.5 % Basophils (%) (Auto) 0.6 % Neutrophils # (Auto) 4.5 TH/MM3 Lymphocytes # (Auto) 2.1 TH/MM3 Monocytes # (Auto) 0.8 TH/MM3 Eosinophils # (Auto) 0.0 TH/MM3 Basophils # (Auto) 0.0 TH/MM3 CBC Comment DIFF FINAL Differential Comment Blood Urea Nitrogen 11 MG/DL Creatinine 0.81 MG/DL Random Glucose 108 MG/DL Calcium Level 9.1 MG/DL Sodium Level 135 MEQ/L Potassium Level 3.1 MEQ/L Chloride Level 101 MEQ/L Carbon Dioxide Level 25.9 MEQ/L Anion Gap 8 MEQ/L Estimat Glomerular Filtration Rate 78 ML/MIN Total Creatine Kinase 77 U/L Troponin I LESS THAN 0.02 NG/ML LESS THAN 0.02 NG/ML MDM Supervised Visit with DOM[facility]UE[facility]: No Narrative Course Troponin is negative. Repeat troponin 3 hours later is again negative. Patient feels this was anxiety. She is comfortable going home. She will follow up with her doctors. Advised to return at any time for any worsening symptoms. Diagnosis Primary Impression: Chest pain Qualified Codes: R07.9 - Chest pain, unspecified Additional Impressions: Hypokalemia Anxiety Patient Instructions: Anxiety (ED), General Instructions Additional Instruction: Follow-up with your doctors. Return anytime for any worsening symptoms. Disposition: 01 DISCHARGE HOME Condition: Stable Millie Goodman MD Apr 02, 2017 21:22
[2017-04-02 21:37] VITALS: BP 118/70
--- NOTE | 2017-04-03 14:27 | EKG ---
Date Performed: 04/02/2017 Time Performed: 16:37:15 PTAGE: 41 years EKG: Sinus rhythm NONSPECIFIC ST & T-WAVE ABNORMALITY BORDERLINE ECG PREVIOUS TRACING : 08/11/2016 05.56 Compared to previous tracing, STT wave changes are markedly improved. DOCTOR: David Tracy Interpretating Date/Time 04/03/2017 14:25:57
== END 2017-04-02 21:38 | disposition home or self-care (01) ==
LOC: PHED 16:28
DX: R07.9 Chest pain, unspecified (principal); E87.6 Hypokalemia; E78.00 Pure hypercholesterolemia, unspecified; F41.9 Anxiety disorder, unspecified; I10 Essential (primary) hypertension; I48.91 Unspecified atrial fibrillation; F17.200 Nicotine dependence, unspecified, uncomplicated; F12.90 Cannabis use, unspecified, uncomplicated; Z79.01 Long term (current) use of anticoagulants; Z79.82 Long term (current) use of aspirin
CPT/HCPCS: 71045; 80048; 82550; 84484; 85025; 93005; 96374; 96375; 99285; J2060; J2405